=== PATIENT | female | born 1955 | race Caucasian/White ===

== ENCOUNTER 2016-10-26 06:44 | Inpatient (IN) | payer OTHER ==
[2016-10-26] MEDS ORDERED: morphine CARPU-JECT 4 MG/1 ML DISP.SYRIN IVPUSH ONE ×3 (07:14→12:48)
[2016-10-26] MEDS ORDERED: SODIUM CHLORIDE 500 ML IV STA (07:14)
[2016-10-26] MEDS ORDERED: ONDANSETRON 4 MG/2 ML VIAL IVPB ONE (07:16)
--- NOTE | 2016-10-26 07:28 | PDOC ---
History of Present Illness - General History Source: Patient, Family (Son) Exam Limitations: No Limitations - History of Present Illness Initial Comments: 10/26/16 07:43 The patient is a 61 year old female presenting with her son, with a significant past medical history of stage 4 colon CA with metastasize to the liver, lung and spine (L1) with last radiation being 4 days ago (also on chemotherapy), COPD and HTN, who presents to the emergency department with abdominal pain since last night. He notes that the patient usually has abdominal pain but never this severe. He also notes that the abdominal pain is usually onset when she has fluid build up in the abdomen. He reports that she has had loss of appetite for the last few days. The patient describes her abdominal pain as diffused throughout. On presentation the patient states that she has nausea, vomit and diarrhea. The patient denies shortness of breath, headache and dizziness. Denies fever, chills, and constipation. Denies dysuria, frequency, urgency and hematuria. Allergies: amitriptyline, IV contrast Past surgical history: Right sided chest port Social history: No alcohol, tobacco or drug use reported PMD - Dr. Harjit Modi (Dr. Yoder) Oncologist - Dr. Krueger ([facility]) Juan (Son) - [phone] <Lemuel Allen - Last Filed: 10/26/16 10:33> - General History Source: Patient, Family, [facility] Records Exam Limitations: No Limitations <Willian Dowd - Last Filed: 10/26/16 10:43> - General Chief Complaint: Pain, Acute Stated Complaint: ABD PAIN Time Seen by Provider: 10/26/16 07:05 Past History <Lemuel Allen - Last Filed: 10/26/16 10:33> - Past Medical History Cancer: (liver) Cardiac Disorders: Yes COPD: Yes GI Disorders: Yes HTN: Yes - Psycho/Social/Smoking Cessation Hx Suicidal Ideation: No Smoking History: Unknown if ever smoked <Willian Dowd - Last Filed: 10/26/16 10:43> - Past Medical History Allergies/Adverse Reactions: Allergies Allergy/AdvReac Type Severity Reaction Status Date / Time amitriptyline Allergy Verified 10/26/16 06:55 iv contrast Allergy Uncoded 10/26/16 06:55 Home Medications: Ambulatory Orders Acetaminophen [Tylenol] 650 mg PO QID PRN 10/26/16 Albuterol Sulfate Inhaler - [Ventolin Hfa Inhaler -] 1 - 2 inh PO Q4H 10/26/16 Docusate Sodium [Colace -] 100 mg PO BID 10/26/16 FENTANYL 75mcg PATCH [DURAGESIC 75mcg PATCH -] 1 each TD Q72H 10/26/16 Gabapentin [Neurontin -] 300 mg PO Q8H 10/26/16 Hydromorphone [Dilaudid -] 4 mg PO Q6H 10/26/16 Lorazepam 0.5 mg PO ASDIR 10/26/16 Pantoprazole Sodium [Protonix] 40 mg PO DAILY 10/26/16 Polyethylene Glycol 3350 [Miralax (For Daily Use) -] 17 gm PO DAILY 10/26/16 Sennosides [Senna] 8.6 mg PO HS 10/26/16 Tizanidine HCl [Zanaflex] 2 mg PO ASDIR 10/26/16 Review of Systems - Review of Systems Able to Perform ROS?: Yes Comments:: 10/26/16 07:43 GENERAL/CONSTITUTIONAL: (+)Loss of appetite. No fever or chills. No weakness. HEAD, EYES, EARS, NOSE AND THROAT: No change in vision. No ear pain or discharge. No sore throat. CARDIOVASCULAR: (+)Chest pain. No shortness of breath RESPIRATORY: No cough, wheezing, or hemoptysis. GASTROINTESTINAL: (+)Abdominal pain, nausea, vomiting and diarrhea. No constipation. GENITOURINARY: No dysuria, frequency, or change in urination. MUSCULOSKELETAL: No joint or muscle swelling or pain. No neck or back pain. SKIN: No rash NEUROLOGIC: No headache, vertigo, loss of consciousness, or change in strength/ sensation. ENDOCRINE: No increased thirst. No abnormal weight change HEMATOLOGIC/LYMPHATIC: No anemia, easy bleeding, or history of blood clots. ALLERGIC/IMMUNOLOGIC: No hives or skin allergy. <Lemuel Allen - Last Filed: 10/26/16 10:33> *Physical Exam - Vital Signs Last Vital Signs Temp Pulse Resp BP Pulse Ox 97.5 F L 100 H 18 143/73 99 10/26/16 07:01 10/26/16 07:01 10/26/16 07:01 10/26/16 07:01 10/26/16 07:01 - Physical Exam Comments: 10/26/16 07:44 GENERAL: (+) Cachectic. Awake, alert, and fully oriented. HEAD: No signs of trauma, normocephalic, atraumatic EYES: PERRLA, EOMI, sclera anicteric, conjunctiva clear ENT: Auricles normal inspection, hearing grossly normal, nares patent, oropharynx clear without exudates. Moist mucosa NECK: Normal ROM, supple, no lymphadenopathy, JVD, or masses LUNGS: No distress, speaks full sentences, clear to auscultation bilaterally HEART: Regular rate and rhythm, normal S1 and S2, no murmurs, rubs or gallops, peripheral pulses normal and equal bilaterally. ABDOMEN: (+) Diffused abdominal tenderness more prominent on the left lower quadrant. Soft, normoactive bowel sounds. No guarding, no rebound. No masses EXTREMITIES: Normal inspection, Normal range of motion, no edema. No clubbing or cyanosis. NEUROLOGICAL: (+) Right sided chest port. Cranial nerves II through XII grossly intact. Normal speech, no focal sensorimotor deficits SKIN: Warm, Dry, normal turgor, no rashes or lesions noted. <Lemuel Allen - Last Filed: 10/26/16 10:33> - Vital Signs Last Vital Signs Temp Pulse Resp BP Pulse Ox 97.5 F L 100 H 18 143/73 99 10/26/16 07:01 10/26/16 07:01 10/26/16 07:01 10/26/16 07:01 10/26/16 07:01 <Willian Dowd - Last Filed: 10/26/16 10:43> Heart Score/ECG Review #1 ECG reviewed & interpreted by me at: 07:40 10/26/16 08:08 NSR 105, RBBB, LAFB (bifascicular block), TWI V1-V4, III, avf, no std/kylah, QTC 512 msec <Willian Dowd - Last Filed: 10/26/16 10:43> ED Treatment Course - LABORATORY CBC & Chemistry Diagram: 10/26/16 07:15 10/26/16 07:15 - ADDITIONAL ORDERS Additional order review: Laboratory Results 10/26/16 07:35 VBG pH 7.42 POC VBG pCO2 34.2 L POC VBG pO2 41.8 Mixed VBG HCO3 21.7 - RADIOLOGY Radiograph Interpretation: 10/26/16 08:17 Chest X-Ray Reviewed by: Dr. Juan Villegas Impression: Bilateral pulmonary and pleural changes as described. Large heart. Sclerotic knob. CT abdomen and pelvis without contrast Reviewed by: Dr. Dexter Varela Impression: Concentric wall edema is seen involving the length of the colon as well as multiple small bowel loops which could be on the basis of acute enterocolitis or possibly vascular disease. Alternatively this appearance could be due to hypoproteinemia. The gallbladder wall appears to demonstrate diffuse nonspecific thickening. If there is clinical concern for possible acute cholecystitis correlation with a nuclear medicine HIDA scan may be performed. Multiple hepatic lesions are noted consistent with known metastatic neoplastic disease. Splenomegaly. Possible varices are noted within the gastrohepatic ligament and along the lower thoracic esophagus. Small to moderate amount of ascites. Moderate left pleural effusion. Multiple bilateral lower lung field pulmonary nodules. Status post L1 vertebroplasty. There is equivocal identification of epidural soft tissue material posterior to the L1 vertebral body. <Lemuel Allen - Last Filed: 10/26/16 10:33> - LABORATORY CBC & Chemistry Diagram: 10/26/16 07:15 10/26/16 07:15 - RADIOLOGY Radiology Studies Ordered: Category Date Time Status ABDOMEN & PELVIS CT W/O CONTR [CT] Stat CT Scan 10/26/16 07:14 Ordered CHEST X-RAY PORTABLE* [RAD] Stat Radiology 10/26/16 07:13 Ordered <Willian Dowd - Last Filed: 10/26/16 10:43> Medical Decision Making - Medical Decision Making 10/26/16 07:29 A portion of this note was written by my scribe. Vital Signs Temp Pulse Resp BP Pulse Ox 97.5 F L 100 H 18 143/73 99 10/26/16 07:01 10/26/16 07:01 10/26/16 07:01 10/26/16 07:01 10/26/16 07:01 61 year old female c/ pmh of colon ca stage IV c/ mets to liver, L1, lung, R sided chest port p/w worsening abdominal pain since yesterday evening. History provided by pt's son and pt. Pt's son visits pt several times a day at [facility]. Started to develop diffuse abdominal pain with several loose stools and nausea. No fevers, or vomiting. Did not recently have any IV chemotherapy but did 4 days have radiation therapy to the back. Pain had worsened than her typical pain and pt brought to the ED. Differential includes radiation colitis, colitis, diverticulitis, appendicitis, bowel obstruction, UTI. Will initiate adult sepsis protocol. Obtain CT abdomen and pelvis, UA, and reassess. 10/26/16 10:39 CBC, BMP 10/26/16 07:15 10/26/16 07:15 CMP Sodium 137 mmol/L (136-145) 10/26/16 07:15 Potassium 4.4 mmol/L (3.5-5.1) 10/26/16 07:15 Chloride 103 mmol/L (98-107) 10/26/16 07:15 Carbon Dioxide 22 mmol/L (21-32) 10/26/16 07:15 Anion Gap 12 (8-16) 10/26/16 07:15 BUN 16 mg/dL (7-18) 10/26/16 07:15 Creatinine 0.8 mg/dL (0.55-1.02) 10/26/16 07:15 Creat Clearance w eGFR > 60 (>60) 10/26/16 07:15 Random Glucose 96 mg/dL (74-106) 10/26/16 07:15 Lactic Acid 2.987 mmol/L (0.4-2.0) H* 10/26/16 07:15 Calcium 7.7 mg/dL (8.5-10.1) L 10/26/16 07:15 Total Bilirubin 4.0 mg/dL (0.2-1.0) H 10/26/16 07:15 AST 105 U/L (15-37) H 10/26/16 07:15 ALT 20 U/L (12-78) 10/26/16 07:15 Alkaline Phosphatase 543 U/L (45-117) H 10/26/16 07:15 Creatine Kinase 231 IU/L (26-192) H 10/26/16 07:15 Troponin I 0.04 ng/ml (0.00-0.05) 10/26/16 07:15 Total Protein 8.1 g/dl (6.4-8.2) 10/26/16 07:15 Albumin 1.7 g/dl (3.4-5.0) L 10/26/16 07:15 Urine Test Results Urine Color Kat[place] 10/26/16 09:24 Urine Appearance Clear 10/26/16 09:24 Urine pH 5.0 (5.0-8.0) 10/26/16 09:24 Ur Specific [place] 1.021 (1.001-1.035) 10/26/16 09:24 Urine Protein 1+ (NEGATIVE) H 10/26/16 09:24 Urine Glucose (UA) Negative (NEGATIVE) 10/26/16 09:24 Urine Ketones Trace (NEGATIVE) H 10/26/16 09:24 Urine Blood Negative (NEGATIVE) 10/26/16 09:24 Urine Nitrite Negative (NEGATIVE) 10/26/16 09:24 Urine Bilirubin 2.0 (NEGATIVE) 10/26/16 09:24 Ur Leukocyte Esterase Trace (NEGATIVE) H 10/26/16 09:24 Urine RBC 1 /hpf (0-3) 10/26/16 09:24 Urine WBC 3 /hpf (3-5) 10/26/16 09:24 Ur Epithelial Cells Rare /hpf (FEW) 10/26/16 09:24 Urine Mucus Moderate 10/26/16 09:24 CT scan demonstrates diffuse colitis. This is possibly radiation colitis given the radiation. Given the elevated WBC and CT findings, vanc and zosyn was ordered. Case discussed with Dr. Yoder who accepts the patient for admission. He requests Dr. Forbes, Dr. Kim, and Dr. Benitez for consultation. <Willian Dowd - Last Filed: 10/26/16 10:43> *DC/Admit/Observation/Transfer - Attestations Scribe Attestion: 10/26/16 07:44 Documentation prepared by Lemuel Allen, acting as medical research scientist for Willian Dowd MD <Lemuel Allen - Last Filed: 10/26/16 10:33> - Discharge Dispostion Admit: Yes <Willian Dowd - Last Filed: 10/26/16 10:43> Diagnosis at time of Disposition: Colitis Malignant neoplasm of colon Qualifiers: Colon location: unspecified part of colon Qualified Code(s): C18.9 - Malignant neoplasm of colon, unspecified - Discharge Dispostion Condition at time of disposition: Stable - Referrals Referrals: Harjit Modi [Primary Care Provider] -
[2016-10-26 07:37] LABS: VENOUS PH 7.42 (7.32-7.42)
[2016-10-26] MEDS ORDERED: ONDANSETRON 4 MG/2 ML VIAL ONE (07:37)
[2016-10-26] MEDS ORDERED: morphine CARPU-JECT 4 MG/1 ML DISP.SYRIN ONE ×3 (07:37→14:03)
[2016-10-26 07:38] LABS: VENOUS BLOOD GAS HCO3 21.7 meq/L (19-25)
[2016-10-26 07:40] LABS: MCH 29.2 pg (25.7-33.7); MCHC 31.9 g/dl (32.0-36.0); MEAN CELL VOLUME 91.7 fl (80-96); MEAN PLT VOLUME 7.8 fl (7.5-11.1); PLATELET COUNT 121 K/MM3 (134-434); RDW 17.4 % (11.6-15.6); WHITE BLOOD COUNT 28.1 K/mm3 (4.0-10.0)
[2016-10-26 08:05] LABS: INR 1.63 (0.82-1.09); PROTHROMBIN TIME (PATIENT) 18.1 SEC (9.98-11.88)
[2016-10-26 08:08] LABS: ACTIVATED PTT 32.9 SECONDS (26.9-34.4)
[2016-10-26 08:13] LABS: ALBUMIN 1.7 g/dl (3.4-5.0); ANION GAP 12 (8-16); CALCIUM 7.7 mg/dL (8.5-10.1); CO2 22 mmol/L (21-32); CREATININE 0.8 mg/dL (0.55-1.02); GLUCOSE,RANDOM 96 mg/dL (74-106); SGPT/ALT 20 U/L (12-78); TOT PROT 8.1 g/dl (6.4-8.2)
[2016-10-26 08:15] LABS: ALK PHOS 543 U/L (45-117); TROPONIN I 0.04 ng/ml (0.00-0.05)
[2016-10-26] MEDS ORDERED: PIPERACILLIN/TAZOB 3.375 GM/50 ML PRE-DOCKED IVPB ONE (08:19)
[2016-10-26] MEDS ORDERED: VANCOMYCIN 1,000 MG in DEXTROSE 5%-WATER - 250 ML IVPB ONE (08:19)
[2016-10-26 08:29] LABS: SGOT/AST 105 U/L (15-37)
[2016-10-26] MEDS ORDERED: PIPERACILLIN/TAZOB 3.375 GM 50 ML IVPB ONE (08:35)
[2016-10-26] MEDS ORDERED: VANCOMYCIN 1 GRAM (PRE-DOCKED) 250 ML IVPB ONE (08:35)
[2016-10-26 09:35] LABS: URINE APPEARANCE CLEAR; URINE BLOOD NEGATIVE (NEGATIVE); URINE COLOR AMBER; URINE GLUCOSE (UA) NEGATIVE (NEGATIVE); URINE KETONE TRACE (NEGATIVE); URINE NITRITE NEGATIVE (NEGATIVE); URINE UROBILINOGEN 4.0 E.U/dl E.U./dl (0.2-1.0)
[2016-10-26 09:36] LABS: URINE LEUK ESTERASE TRACE (NEGATIVE); URINE PROTEIN 1+ (NEGATIVE)
[2016-10-26 09:54] LABS: GRANULAR CASTS 49 /lpf; URINE MUCUS MODERATE; URINE RBC 1 /hpf (0-3); URINE WBC 3 /hpf (3-5)
[2016-10-26 10:01] LABS: PLATELET ESTIMATE DECREASED (NORMAL)
--- NOTE | 2016-10-26 10:14 | EKG ---
Test Reason : Blood Pressure : / mmHG Vent. Rate : 105 BPM Atrial Rate : 105 BPM P-R Int : 158 ms QRS Dur : 132 ms QT Int : 388 ms P-R-T Axes : 036 -81 001 degrees QTc Int : 512 ms SINUS TACHYCARDIA RIGHT BUNDLE BRANCH BLOCK LEFT ANTERIOR FASCICULAR BLOCK BIFASCICULAR BLOCK ABNORMAL ECG NO PREVIOUS ECGS AVAILABLE Confirmed by JERMAINE FERRIS MD ([id number]) on 10/26/2016 10:14:26 AM Referred By: Confirmed By:JERMAINE FERRIS MD
[2016-10-26] MEDS ORDERED: SODIUM CHLORIDE 250 ML IV STA (13:55)
--- NOTE | 2016-10-26 14:01 | PN ---
Progress Note (short form) - Note Progress Note: ID consult dictated imp/reccd History from son 61 year old with metastatic colon cancer off chemo for last one month recently returned from cruise with weakness and back pain hospitalized at [facility] (oncologist Dr Krueger) where she was found to have new vertebral and lung mets she went to [place] on 10/21 and started radiation last week- she got 3 cycles and it was stopped family does not know why today with increasing pain back radiating to abdomen son reports diarrhea at the [place] patient denies fever/chills +vomiting per patient she is alert knows her name and some facts but is a poor historian labs notable for elevated wbc and lactic acid ct scan notable for diffuse colon wall thickening, bilateral lower lung nodules , liver lesions left pleural effusion IVC filer L1 vertebroplasty possible colitis- ?radiation,?cdiff cultures blood stool culture, wbc, cdiff norovirus zosyn and flagyl received vancomycin in ed as well metastatic colon cancer
[2016-10-26] MEDS: METRONIDAZOLE 500 MG PREMIXED 100 ML IVPB SCH ×2 (14:07→17:25)
[2016-10-26 17:33] VITALS: BMI 20.8
--- NOTE | 2016-10-26 17:39 | HP ---
Admitting History and Physical - Primary Care Physician PCP: Adam Yoder - Admission Chief Complaint: ASCITES/ABD PAIN History of Present Illness: The patient is a 61 year old female presenting with her son, with a significant past medical history of stage 4 colon CA with metastasize to the liver, lung and spine (L1) with last radiation being 4 days ago (also on chemotherapy), COPD and HTN, who presents to the emergency department with abdominal pain since last night. He notes that the patient usually has abdominal pain but never this severe. He also notes that the abdominal pain is usually onset when she has fluid build up in the abdomen. He reports that she has had loss of appetite for the last few days. The patient describes her abdominal pain as diffused throughout. On presentation the patient states that she has nausea, vomit and diarrhea. The patient denies shortness of breath, headache and dizziness. Denies fever, chills, and constipation. Denies dysuria, frequency, urgency and hematuria. History Source: Patient, Family Member, Medical Record - Past Medical History Heme/Onc: Yes: Cancer - Smoking History Smoking history: Former smoker Have you smoked in the past 12 months: No - Alcohol/Substance Use Hx Alcohol Use: No Home Medications - Allergies Allergies/Adverse Reactions: Allergies Allergy/AdvReac Type Severity Reaction Status Date / Time amitriptyline Allergy Verified 10/26/16 06:55 iv contrast Allergy Uncoded 10/26/16 06:55 - Home Medications Home Medications: Ambulatory Orders Acetaminophen [Tylenol] 650 mg PO QID PRN 10/26/16 Albuterol Sulfate Inhaler - [Ventolin Hfa Inhaler -] 1 - 2 inh PO Q4H 10/26/16 Docusate Sodium [Colace -] 100 mg PO BID 10/26/16 FENTANYL 75mcg PATCH [DURAGESIC 75mcg PATCH -] 1 each TD Q72H 10/26/16 Gabapentin [Neurontin -] 300 mg PO Q8H 10/26/16 Hydromorphone [Dilaudid -] 4 mg PO Q6H 10/26/16 Lorazepam 0.5 mg PO ASDIR 10/26/16 Pantoprazole Sodium [Protonix] 40 mg PO DAILY 10/26/16 Polyethylene Glycol 3350 [Miralax (For Daily Use) -] 17 gm PO DAILY 10/26/16 Sennosides [Senna] 8.6 mg PO HS 10/26/16 Tizanidine HCl [Zanaflex] 2 mg PO ASDIR 10/26/16 Review of Systems - Review of Systems Constitutional: reports: Loss of Appetite, Weakness Eyes: reports: No Symptoms HENT: reports: No Symptoms Neck: reports: No Symptoms Cardiovascular: reports: No Symptoms Respiratory: reports: No Symptoms Gastrointestinal: reports: Abdominal Pain, Other Genitourinary: reports: No Symptoms Integumentary: reports: No Symptoms Neurological: reports: No Symptoms Endocrine: reports: No Symptoms Hematology/Lymphatic: reports: No Symptoms Psychiatric: reports: No Symptoms Physical Examination Vital Signs: Vital Signs Temperature 98 F 10/26/16 17:27 Pulse Rate 79 10/26/16 17:27 Respiratory Rate 18 10/26/16 17:27 Blood Pressure 123/75 10/26/16 17:27 O2 Sat by Pulse Oximetry (%) 97 10/26/16 15:59 Findings/Remarks: ASLEEP, SON BEDSIDE Constitutional: Yes: Mild Distress Eyes: Yes: WNL HENT: Yes: WNL Neck: Yes: WNL Cardiovascular: Yes: WNL Respiratory: Yes: WNL Gastrointestinal: Yes: Tenderness Renal/: Yes: WNL Musculoskeletal: Yes: Muscle Weakness Extremities: Yes: WNL Edema: No Peripheral Pulses WNL: Yes Integumentary: Yes: WNL Wound/Incision: Yes: Clean/Dry Neurological: Yes: Other ...Motor Strength: LLE, RLE Psychiatric: Yes: Other Imaging - Results Cat Scan: Report Reviewed Problem List - Problems (1) Colitis Code(s): K52.9 - NONINFECTIVE GASTROENTERITIS AND COLITIS, UNSPECIFIED (2) Colon cancer Code(s): C18.9 - MALIGNANT NEOPLASM OF COLON, UNSPECIFIED Qualifiers: Colon location: unspecified part of colon Qualified Code(s): C18.9 - Malignant neoplasm of colon, unspecified Assessment/Plan IV ABX PER ID ONCOLOGY AND GI EVAL PAIN CONTROL CHECK CX ADVANCE DIET TOLERATED
[2016-10-26] MEDS ORDERED: HYDROmorphone HCL CARPU-JECT 1 MG/1 ML DISP.SYRIN IVPB PRN (17:40)
[2016-10-26] MEDS ORDERED: ACETAMINOPHEN 650 MG SUPP.RECT PR PRN (17:40)
[2016-10-26] MEDS ORDERED: ONDANSETRON 4 MG/2 ML VIAL IVPB PRN (17:40)
[2016-10-26] MEDS ORDERED: FENTANYL PATCH WASTE MC PRN (17:40)
[2016-10-26] MEDS ORDERED: DEXTROSE 5%-NORMAL SALINE 1,000 ML IV SCH (17:45)
--- NOTE | 2016-10-26 18:09 | CONS ---
DATE OF CONSULTATION: DATE OF DICTATION: 10/26/2016 INFECTIOUS DISEASE CONSULTATION REQUESTING PHYSICIAN: Adam Yoder M.D. CONSULTING PHYSICIAN: Dave Pérez M.D. HISTORY OF PRESENT ILLNESS: This is a 61-year-old woman who was sent over from [facility] with complaints of increasing back and abdominal pain. Most of the history was obtained from her son, who I spoke to via phone. She apparently was diagnosed about a year ago with colon cancer. She was on chemotherapy until about a month ago. She was cleared to go on a cruise, which she returned from about 3 weeks ago. She was complaining of generalized weakness and low back pain after her return. After 2 days at home, she was admitted to [facility], where her oncologist Dr. Krueger practices. She was hospitalized there and was found to have new lung and spine metastases. She was discharged to the detention on October 21 and scheduled to start radiation therapy, which the son reports she was to receive last week and this week. She received 3 doses of radiation last week and it was stopped. They are not clear as to why. She denies any fevers or chills. She has a poor appetite. Son reports she has diarrhea in the detention. She reports she had vomiting as well. She notes nausea. She has no fevers or chills. Her travel was on a cruise which was about a month ago. ALLERGIES: She is allergic to AMITRIPTYLINE and IV CONTRAST. MEDICATION: At the detention include senna, Miralax, Protonix, Neurontin, Colace, Ventolin, Zanaflex, Dilaudid, lorazepam, Duragesic patch, Tylenol. FAMILY HISTORY: Noncontributory. SOCIAL HISTORY: Her daughter lives with her, but she is currently staying at the detention since her most recent admission. PAST MEDICAL HISTORY: Notable for history of colon cancer with metastases to the liver, lung, and spine. She never had any surgery. She is status post chemotherapy and recent radiation therapy to her back last week. She has a history as well of COPD and hypertension. She has never had any surgery. REVIEW OF SYSTEMS: She notes poor appetite. She is thirsty and wants to have something to drink. She denies any fever and chills, and she states that she had some vomiting this morning. PHYSICAL EXAMINATION: General: She is very weak appearing by alert. She is a very poor historian. She is oriented to person and place, but she will not give any detailed history. Vital signs: Temperature 98, pulse 87, blood pressure 143/75, respiratory rate 16, she is saturating 95%. HEENT: Normocephalic. Eyes are mildly icteric. She has dry oral mucosa. She has no thrush. Neck: Supple. Lungs: Clear have diminished breath sounds at the left base. Heart: Regular rate and rhythm. Abdomen: Firm, diffusely tender to palpation. She has good bowel sounds. She has low back pain to palpation of her lumbar spine. She has no thoracic or cervical pain. Extremities: Without edema. Skin: She has no rash. LABORATORY: White count is 28,000, hemoglobin 9.5, platelets 121, INR 1.6. Her BUN and creatinine are 16 and 0.8, lactic acid was 2.9 and repeated to 2.1. Total bilirubin is 4 with an AST of 105 and alkaline phosphatase of 543. Urinalysis has 3 white cells. Chest x-ray was done which is notable for cardiomegaly on the left and bilateral effusions and atelectasis left greater than right. CAT scan of the abdomen and pelvis reveals a left pleural effusion, bilateral lower lung nodules, liver lesions, diffuse colonic wall thickening, IVC filter, and an L1 vertebroplasty. IMPRESSION: 1. In summary, this is a 61-year-old woman with metastatic colon cancer with possible colitis, possible radiation, possible Clostridium difficile. We cultured her blood. Will send a stool culture, white cells. Will send norovirus as well, given her recent cruise. Will treat her with Zosyn and Flagyl. She received vancomycin in the emergency room as well. 2. History of metastatic colon cancer. Further recommendations to follow based on her clinical course. DAVE PÉREZ M.D. [id number] MTDD
[2016-10-26] MEDS: PIPERACILLIN/TAZOB 3.375 GM/50 ML PRE-DOCKED IVPB SCH (18:26)
[2016-10-26] MEDS: fentaNYL 75mcg/hr PATCH.TD72 TD SCH (18:28)
--- NOTE | 2016-10-26 20:23 | CON.GI ---
Consult Consult Specialty:: gastroenetorology Referred by:: Dr Yoder/ Harjit Modi - History of Present Illness History of Present Illness: 61 y/o female with PMH of Colon cancer with metastases to the spine, s/p radiation to the spine was admitted with severe abdominal pain. She had soft bowel movements yesterday with abdominal pain but this persisted up to the time of admission. This evening the abdominal pain persisted despite pain medication - Past Medical History Pulmonary: Yes: COPD - Alcohol/Substance Use Hx Alcohol Use: No - Smoking History Smoking history: Former smoker Have you smoked in the past 12 months: No Home Medications - Allergies Allergies/Adverse Reactions: Allergies Allergy/AdvReac Type Severity Reaction Status Date / Time amitriptyline Allergy Verified 10/26/16 06:55 iv contrast Allergy Uncoded 10/26/16 06:55 - Home Medications Home Medications: Ambulatory Orders Acetaminophen [Tylenol] 650 mg PO QID PRN 10/26/16 Albuterol Sulfate Inhaler - [Ventolin Hfa Inhaler -] 1 - 2 inh PO Q4H 10/26/16 Docusate Sodium [Colace -] 100 mg PO BID 10/26/16 FENTANYL 75mcg PATCH [DURAGESIC 75mcg PATCH -] 1 each TD Q72H 10/26/16 Gabapentin [Neurontin -] 300 mg PO Q8H 10/26/16 Hydromorphone [Dilaudid -] 4 mg PO Q6H 10/26/16 Lorazepam 0.5 mg PO ASDIR 10/26/16 Pantoprazole Sodium [Protonix] 40 mg PO DAILY 10/26/16 Polyethylene Glycol 3350 [Miralax (For Daily Use) -] 17 gm PO DAILY 10/26/16 Sennosides [Senna] 8.6 mg PO HS 10/26/16 Tizanidine HCl [Zanaflex] 2 mg PO ASDIR 10/26/16 Family Disease History - Family Disease History Family History: Denies Review of Systems - Review of Systems Constitutional: denies: Fever HENT: denies: Difficult Swallowing Respiratory: denies: SOB Gastrointestinal: reports: Abdominal Pain. denies: Bloating, Constipation, Diarrhea, Nausea Physical Exam-GI Vital Signs: Vital Signs Temperature 98 F 10/26/16 17:27 Pulse Rate 79 10/26/16 17:27 Respiratory Rate 18 10/26/16 17:40 Blood Pressure 123/75 10/26/16 17:27 O2 Sat by Pulse Oximetry (%) 97 10/26/16 17:40 Constitutional: Yes: Well Nourished Eyes: Yes: Conjunctiva Clear HENT: Yes: Atraumatic, Tonsillar Exudate Cardiovascular: Yes: Regular Rate and Rhythm Respiratory: Yes: CTA Bilaterally ...Palpate: Yes: Soft, Tenderness (--diffuse), Tenderness, Rebound (--diffuse) Labs: INR, PTT INR 1.63 (0.82-1.09) H 10/26/16 07:15 CBCD WBC 28.1 K/mm3 (4.0-10.0) H 10/26/16 07:15 RBC 3.25 M/mm3 (3.60-5.2) L 10/26/16 07:15 Hgb 9.5 GM/dL (10.7-15.3) L 10/26/16 07:15 Hct 29.8 % (32.4-45.2) L 10/26/16 07:15 MCV 91.7 fl (80-96) 10/26/16 07:15 MCHC 31.9 g/dl (32.0-36.0) L 10/26/16 07:15 RDW 17.4 % (11.6-15.6) H 10/26/16 07:15 Plt Count 121 K/MM3 (134-434) L 10/26/16 07:15 MPV 7.8 fl (7.5-11.1) 10/26/16 07:15 CMP Sodium 137 mmol/L (136-145) 10/26/16 07:15 Potassium 4.4 mmol/L (3.5-5.1) 10/26/16 07:15 Chloride 103 mmol/L (98-107) 10/26/16 07:15 Carbon Dioxide 22 mmol/L (21-32) 10/26/16 07:15 Anion Gap 12 (8-16) 10/26/16 07:15 BUN 16 mg/dL (7-18) 10/26/16 07:15 Creatinine 0.8 mg/dL (0.55-1.02) 10/26/16 07:15 Creat Clearance w eGFR > 60 (>60) 10/26/16 07:15 Calcium 7.7 mg/dL (8.5-10.1) L 10/26/16 07:15 Total Bilirubin 4.0 mg/dL (0.2-1.0) H 10/26/16 07:15 AST 105 U/L (15-37) H 10/26/16 07:15 ALT 20 U/L (12-78) 10/26/16 07:15 Alkaline Phosphatase 543 U/L (45-117) H 10/26/16 07:15 Total Protein 8.1 g/dl (6.4-8.2) 10/26/16 07:15 Albumin 1.7 g/dl (3.4-5.0) L 10/26/16 07:15 Imaging - Results Cat Scan: Report Reviewed, Image Reviewed (thickenned small bowel loops) Problem List - Problems (1) Acute mesenteric ischemia Assessment/Plan: secondary to hypercoaguable state R> prognosis poor because of metastatic colon cancer IV hydration continue antibiotics discussed with Juan Devine her son and Jessika her niece. Her prognosis is poor Code(s): K55.059 - ACUTE ISCHEMIA OF INTESTINE, PART AND EXTENT UNSPECIFIED
[2016-10-26] MEDS: DEXTROSE 5%-NORMAL SALINE 1,000 ML IV SCH (21:44)
--- NOTE | 2016-10-26 22:14 | CONSULT ---
Consult - text type - Consultation Consultation Note: The patient is a 61 year old female presenting with her son, with a significant past medical history of stage 4 colon CA with metastases to the liver, lung and spine (L1) with last radiation being 4 days ago , COPD and HTN, who presents to the emergency department with abdominal pain since last night.Also had diarrhea. Abdominal pain is diffuse The patient denies shortness of breath, headache and dizziness. Denies fever, chills, and constipation. Denies dysuria, frequency, urgency and hematuria. - Past Medical History HTN COPD metastatic colon cancer - Smoking History Smoking history: Former smoker Home Medications - Allergies Allergies/Adverse Reactions: Allergies Allergy/AdvReac Type Severity Reaction Status Date / Time amitriptyline Allergy Verified 10/26/16 06:55 iv contrast Allergy Uncoded 10/26/16 06:55 - Home Medications Home Medications: Ambulatory Orders Acetaminophen [Tylenol] 650 mg PO QID PRN 10/26/16 Albuterol Sulfate Inhaler - [Ventolin Hfa Inhaler -] 1 - 2 inh PO Q4H 10/26/16 Docusate Sodium [Colace -] 100 mg PO BID 10/26/16 FENTANYL 75mcg PATCH [DURAGESIC 75mcg PATCH -] 1 each TD Q72H 10/26/16 Gabapentin [Neurontin -] 300 mg PO Q8H 10/26/16 Hydromorphone [Dilaudid -] 4 mg PO Q6H 10/26/16 Lorazepam 0.5 mg PO ASDIR 10/26/16 Pantoprazole Sodium [Protonix] 40 mg PO DAILY 10/26/16 Polyethylene Glycol 3350 [Miralax (For Daily Use) -] 17 gm PO DAILY 10/26/16 Sennosides [Senna] 8.6 mg PO HS 10/26/16 Tizanidine HCl [Zanaflex] 2 mg PO ASDIR 10/26/16 Current Medications Generic Name Dose Route Start Last Admin Trade Name Freq PRN Reason Stop Dose Admin Acetaminophen 650 mg 10/26/16 17:40 Tylenol Suppository - [place] Q6H PRN FEVER OR PAIN Fentanyl 1 patch 10/26/16 17:45 10/26/16 18:28 Duragesic 75mcg Patch - TD 1 patch Q72H [facility]O Administration Gabapentin 300 mg 10/26/16 22:00 10/26/16 22:17 Neurontin - PO 300 mg BID LAMBERTO Administration Heparin Sodium (Porcine) 5,000 unit 10/26/16 22:00 10/26/16 22:17 Heparin - SQ 5,000 unit BID LAMBERTO Administration Hydromorphone HCl 2 mg 10/26/16 22:53 Dilaudid Injection - IVPB Q4H PRN Metronidazole 100 mls @ 100 mls/hr 10/26/16 14:00 10/26/16 17:25 Flagyl 500mg Premixed Ivpb - IVPB 100 mls/hr Q8H-IV LAMBERTO Administration Dextrose/Sodium Chloride 1,000 mls @ 175 mls/hr 10/26/16 20:13 10/26/16 21:44 D5-Ns - IV 175 mls/hr ASDIR LAMBERTO Administration Miscellaneous 1 each 10/26/16 17:40 10/26/16 18:41 Duragesic Patch Waste MC 1 each PRN PRN Administration PAIN Ondansetron HCl 4 mg 10/26/16 17:40 Zofran Injection IVPB Q6H PRN NAUSEA Pantoprazole Sodium 40 mg 10/27/16 10:00 Protonix 40mg Ivpb (Pre-Docked) IVPB DAILY [facility] Piperacillin Sod/Tazobactam Sod 3.375 gm 10/26/16 16:00 10/26/16 18:26 Zosyn 3.375gm Ivpb (Pre-Docked) IVPB 3.375 gm Q8H-IV [facility]O Administration Protocol Vancomycin HCl 1,000 mg 10/26/16 22:30 Vancomycin (Pre-Docked) IVPB BID [facility] Protocol Physical Examination Vital Signs: Last Vital Signs Temp Pulse Resp BP Pulse Ox 98 F 79 18 123/75 97 10/26/16 17:27 10/26/16 17:27 10/26/16 21:00 10/26/16 17:27 10/26/16 21:00 Cor: RSR, No murmurs, No gallops Lungs: Clear to P&A Abd: Soft, diffuse tenderness, no guarding/rigidity Ext:No significant edema Skin: No rashes, Integument intact A/P 61 y/opatient with metastatic colon cancer with lung/liver mets ,L1 ? epidural disease, s/p Rt, now with abdomnal pain/colitis ruling out infectious vs RT vs ischemis On IV hydration/NPO/Zosyn /flagyl discussed overall poor prognosis with patients son at the bed side
[2016-10-26] MEDS: GABAPENTIN 300 MG CAPSULE (FP) PO SCH (22:17)
[2016-10-26] MEDS: HEPARIN NA (PORCINE) 5,000 UNITS/ML 1ML VIAL SQ SCH (22:17)
[2016-10-26] MEDS ORDERED: VANCOMYCIN 1 GRAM (PRE-DOCKED) 1,000 MG/250 ML BAG IVPB SCH (22:30)
[2016-10-26] MEDS: HYDROmorphone HCL CARPU-JECT 2 MG/1 ML DISP.SYRIN IVPB PRN (22:30)
[2016-10-26] MEDS ORDERED: HYDROmorphone HCL CARPU-JECT 2 MG/1 ML DISP.SYRIN ONE (22:38)
[2016-10-27] MEDS: GABAPENTIN 300 MG CAPSULE (FP) PO SCH ×2 (01:56→09:30)
[2016-10-27] MEDS: METRONIDAZOLE 500 MG PREMIXED 100 ML IVPB SCH ×3 (02:31→17:34)
[2016-10-27] MEDS: PIPERACILLIN/TAZOB 3.375 GM/50 ML PRE-DOCKED IVPB SCH ×3 (03:23→17:00)
[2016-10-27] MEDS: HYDROmorphone HCL CARPU-JECT 2 MG/1 ML DISP.SYRIN IVPB PRN ×3 (05:17→14:09)
[2016-10-27] MEDS: ALBUTEROL SO4 6.7 GM HFA INHALER IH PRN (06:57)
[2016-10-27 07:50] LABS: MCH 29.4 pg (25.7-33.7); MCHC 31.8 g/dl (32.0-36.0); MEAN CELL VOLUME 92.6 fl (80-96); MEAN PLT VOLUME 7.4 fl (7.5-11.1); PLATELET COUNT 90 K/MM3 (134-434); RDW 17.8 % (11.6-15.6); WHITE BLOOD COUNT 12.1 K/mm3 (4.0-10.0)
[2016-10-27] MEDS ORDERED: PT OWN MED DRAWER 7, Y5N ONE ×2 (08:05→19:47)
[2016-10-27 08:14] LABS: ALBUMIN 1.5 g/dl (3.4-5.0)
[2016-10-27 08:17] LABS: BILIRUBIN,TOTAL 2.7 mg/dL (0.2-1.0); CALCIUM 7.9 mg/dL (8.5-10.1); COCKROFT - GAULT 40.2645; CREATININE 1.5 mg/dL (0.55-1.02)
[2016-10-27] MEDS: PANTOPRAZOLE SODIUM 40 MG/100 ML PRE-DOCKED IVPB SCH (09:15)
[2016-10-27] MEDS: HEPARIN NA (PORCINE) 5,000 UNITS/ML 1ML VIAL SQ SCH ×2 (09:31→22:58)
[2016-10-27] MEDS ORDERED: PANTOPRAZOLE SODIUM 40 MG in SODIUM CHLORIDE 100 ML IVPB SCH (10:00)
[2016-10-27] MEDS ORDERED: PANTOPRAZOLE SODIUM 40 MG/100 ML PRE-DOCKED IVPB SCH (10:00)
[2016-10-27] MEDS: DEXTROSE 5%-NORMAL SALINE 1,000 ML IV SCH ×2 (10:06→22:57)
[2016-10-27] MEDS ORDERED: VANCOMYCIN 1 GRAM (PRE-DOCKED) 1,000 MG/250 ML BAG IVPB SCH (12:00)
--- NOTE | 2016-10-27 16:38 | PN ---
Progress Note (short form) - Note Progress Note: awake and alert back pain still present abdominal pain improved no fevers no diarrhea Vital Signs Period Temp Pulse Resp BP Sys/Erickson Pulse Ox Last 24 Hr 97.4 F-98.1 F 79-110 16-20 107-144/59-77 97-97 cor-rrr lungs decreased bs at bases abd soft, +bs +tender to palpation ext no edema CBC, BMP 10/27/16 06:15 10/27/16 06:15 Microbiology 10/26/16 09:24 Urine - Urine Clean Catch Urine Culture - Preliminary Strep Agalactiae Group B 10/26/16 07:15 Blood - Peripheral Venous Blood Culture - Preliminary Pending Organism 10/26/16 07:15 Blood - Peripheral Venous Blood Culture - Preliminary Pending Organism a/p sepsis-gram positive colitis by ct scan metastatic colon cancer continue vancomycin/zosyn/flagyl clinically improved repeat blood cultures echo
--- NOTE | 2016-10-27 16:52 | PN ---
Progress Note (short form) - Note Progress Note: Patient seen and examined Alert , ROS- no headaches, diplopia epistaxis, dysphagia, nausea, emesis, diarrhea, constipation, some reflux, ;some lower back pains, no dysuria, , some abdominal pains and discomfort, neuropathy Le's Current Medications Generic Name Dose Route Start Last Admin Trade Name Freq PRN Reason Stop Dose Admin Acetaminophen 650 mg 10/26/16 17:40 Tylenol Suppository - [place] Q6H PRN FEVER OR PAIN Albuterol Sulfate 1 puff 10/27/16 05:29 10/27/16 06:57 Ventolin Hfa Inhaler - IH 1 puff Q4H PRN Administration SHORT OF BREATH/WHEEZING Fentanyl 1 patch 10/26/16 17:45 10/26/16 18:28 Duragesic 75mcg Patch - TD 1 patch Q72H [facility]O Administration Gabapentin 300 mg 10/26/16 22:00 10/27/16 09:30 Neurontin - PO 300 mg BID LAMBERTO Administration Heparin Sodium (Porcine) 5,000 unit 10/26/16 22:00 10/27/16 09:31 Heparin - SQ 5,000 unit BID LAMBERTO Administration Hydromorphone HCl 2 mg 10/26/16 22:53 10/27/16 14:09 Dilaudid Injection - IVPB 2 mg Q4H PRN Administration Metronidazole 100 mls @ 100 mls/hr 10/26/16 14:00 10/27/16 10:28 Flagyl 500mg Premixed Ivpb - IVPB 100 mls/hr Q8H-IV L[facility]BERTO Administration Dextrose/Sodium Chloride 1,000 mls @ 175 mls/hr 10/26/16 20:13 10/27/16 10:06 D5-Ns - IV 175 mls/hr ASDIR LAMBERTO Administration Miscellaneous 1 each 10/26/16 17:40 10/26/16 18:41 Duragesic Patch Waste MC 1 each PRN PRN Administration PAIN Ondansetron HCl 4 mg 10/26/16 17:40 Zofran Injection IVPB Q6H PRN NAUSEA Pantoprazole Sodium 40 mg 10/27/16 09:30 10/27/16 09:15 Protonix 40mg Ivpb (Pre-Docked) IVPB 40 mg DAILY@0800 L[facility]O Administration Piperacillin Sod/Tazobactam Sod 3.375 gm 10/26/16 16:00 10/27/16 09:50 Zosyn 3.375gm Ivpb (Pre-Docked) IVPB 3.375 gm Q8H-IV [facility]O Administration Protocol Vancomycin HCl 1,000 mg 10/28/16 10:00 Vancomycin (Pre-Docked) IVPB DAILY [facility] Protocol Last Vital Signs Temp Pulse Resp BP Pulse Ox 97.4 F L 79 18 107/59 97 10/27/16 14:00 10/27/16 14:00 10/27/16 14:00 10/27/16 14:00 10/27/16 09:00 HEENT: JANICE, EOM Intact Oropharynx: No thrush, No mucositis,edentulous Neck: Supple Nodes: Without adenopathy Breasts: Without masses Cor: RSR, No murmurs, No gallops Lungs: Clear to P&A Abd: tenderness, georgi. RUQ rebound, bowel sounds present Ext:No significant edema Skin: No rashes, Integument intact CBC, BMP 10/27/16 06:15 10/27/16 06:15 Abnormal Lab Results 10/27/16 10/27/16 06:15 06:15 WBC 12.1 H D RBC 2.85 L Hgb 8.4 L D Hct 26.4 L MCHC 31.8 L RDW 17.8 H Plt Count 90 L D MPV 7.4 L BUN 20 H D Creatinine 1.5 H D Calcium 7.9 L Total Bilirubin 2.7 H D AST 78 H D Alkaline Phosphatase 420 H D Albumin 1.5 L Impression: Sepsis with positive blood cultures -=strep species, urine culture positive ?? 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 This was discontinued because of neuropathy. This was followed by RT to spine. Last chemoRx about 6 weeks ago. Anemia and thrombocytopenia have been present secondary to prior therapy and portal hypertension. Plan: Antibiotics per ID. GI monitoring for colitis Blood bank support prn Spoke with Dr. NEWBY treating oncologist at [facility] for background.
--- NOTE | 2016-10-27 18:50 | PN ---
GI Progress Note Subjective: abdominal pain resolved, Lfts downward trend, WBC down to 12,000 - Objective Vital Signs: Vital Signs Temperature 97.7 F 10/27/16 16:30 Pulse Rate 76 10/27/16 16:30 Respiratory Rate 20 10/27/16 16:30 Blood Pressure 99/57 10/27/16 16:30 O2 Sat by Pulse Oximetry (%) 97 10/27/16 09:00 Constitutional: Well Nourished Eyes: Yes: Conjunctiva Clear HENT: Yes: Atraumatic Neck: Yes: Trachea Midline Cardiovascular: Yes: Regular Rate and Rhythm ...Palpate: Yes: Soft, Tenderness, Epigastium. No: Firm/Rigid, Guarding, Hepatomegaly, Pulsatile Mass, Splenomegaly Labs: CBC, BMP 10/27/16 06:15 10/27/16 06:15 INR, PTT INR 1.63 (0.82-1.09) H 10/26/16 07:15 Problem List - Problems (1) Acute mesenteric ischemia Assessment/Plan: --resolved R> advance diet continue iv hydration Code(s): K55.059 - ACUTE ISCHEMIA OF INTESTINE, PART AND EXTENT UNSPECIFIED
--- NOTE | 2016-10-27 18:52 | PN ---
Progress Note, Physician Chief Complaint: AWAKE ALERT MORE COMFORTABLE TODAY GI AND ID NOTES REVIEWED ONCOLOGY F/U APPRECIATED. I HAD A LONG MEETING WITH THE PATIENT AND HER FAMILY CASE REVIEWED AND QUESTIONS ANSWERED. SEVERITY OF HER DISEASE STATE EXPRESSED AND FAMILY AWARE OF HER POOR PROGNOSIS. - Current Medication List Current Medications: Active Medications Acetaminophen (Tylenol Suppository -) 650 mg [place] Q6H PRN PRN Reason: FEVER OR PAIN Albuterol Sulfate (Ventolin Hfa Inhaler -) 1 puff IH Q4H PRN PRN Reason: SHORT OF BREATH/WHEEZING Last Admin: 10/27/16 06:57 Dose: 1 puff Fentanyl (Duragesic 75mcg Patch -) 1 patch TD Q72H [facility] Last Admin: 10/26/16 18:28 Dose: 1 patch Gabapentin (Neurontin -) 300 mg PO BID [facility] Last Admin: 10/27/16 09:30 Dose: 300 mg Heparin Sodium (Porcine) (Heparin -) 5,000 unit SQ BID [facility] Last Admin: 10/27/16 09:31 Dose: 5,000 unit Hydromorphone HCl (Dilaudid Injection -) 2 mg IVPB Q4H PRN Last Admin: 10/27/16 14:09 Dose: 2 mg Metronidazole (Flagyl 500mg Premixed Ivpb -) 100 mls @ 100 mls/hr IVPB Q8H-IV [facility] Last Admin: 10/27/16 17:34 Dose: 100 mls/hr Dextrose/Sodium Chloride (D5-Ns -) 1,000 mls @ 175 mls/hr IV ASDIR [facility] Last Admin: 10/27/16 10:06 Dose: 175 mls/hr Miscellaneous (Duragesic Patch Waste) 1 each MC PRN PRN PRN Reason: PAIN Last Admin: 10/26/16 18:41 Dose: 1 each Ondansetron HCl (Zofran Injection) 4 mg IVPB Q6H PRN PRN Reason: NAUSEA Pantoprazole Sodium (Protonix 40mg Ivpb (Pre-Docked)) 40 mg IVPB DAILY@0800 [facility] Last Admin: 10/27/16 09:15 Dose: 40 mg Piperacillin Sod/Tazobactam Sod (Zosyn 3.375gm Ivpb (Pre-Docked)) 3.375 gm IVPB Q8H-IV [facility]O PRN Reason: Protocol Last Admin: 10/27/16 17:00 Dose: 3.375 gm Vancomycin HCl (Vancomycin (Pre-Docked)) 1,000 mg IVPB DAILY L[facility]O PRN Reason: Protocol - Objective Vital Signs: Vital Signs Temperature 97.7 F 10/27/16 16:30 Pulse Rate 76 10/27/16 16:30 Respiratory Rate 20 10/27/16 16:30 Blood Pressure 99/57 10/27/16 16:30 O2 Sat by Pulse Oximetry (%) 97 10/27/16 09:00 Constitutional: Yes: Mild Distress Eyes: Yes: WNL HENT: Yes: WNL Neck: Yes: WNL Cardiovascular: Yes: WNL Respiratory: Yes: WNL Gastrointestinal: Yes: Tenderness Genitourinary: Yes: WNL Musculoskeletal: Yes: Muscle Weakness Extremities: Yes: WNL Edema: No Peripheral Pulses WNL: Yes Integumentary: Yes: WNL Wound/Incision: Yes: Clean/Dry Neurological: Yes: WNL ...Motor Strength: WNL Psychiatric: Yes: WNL Labs: CBC, BMP 10/27/16 06:15 10/27/16 06:15 INR, PTT INR 1.63 (0.82-1.09) H 10/26/16 07:15 Problem List - Problems (1) Colitis Code(s): K52.9 - NONINFECTIVE GASTROENTERITIS AND COLITIS, UNSPECIFIED (2) Colon cancer Code(s): C18.9 - MALIGNANT NEOPLASM OF COLON, UNSPECIFIED Qualifiers: Colon location: unspecified part of colon Qualified Code(s): C18.9 - Malignant neoplasm of colon, unspecified (3) Acute ischemic colitis Code(s): K55.039 - ACUTE ISCHEMIA OF LARGE INTESTINE, EXTENT UNSPECIFIED Assessment/Plan 30 MINUTES SPENT IN FAMILY MEETING TODAY QUESTIONS ANSWERED SEVERITY OF DISEASE STATE EXPRESSED AND UNDERSTOOD BY PATIENT AND HER FAMILY. ADVANCE DIET TOLERATED PAIN CONTROL IVF IV ABX PER ID ONCOLOGY F/U GI NO TREATMENT RECOMMENDED AT THIS TIME
[2016-10-28] MEDS: METRONIDAZOLE 500 MG PREMIXED 100 ML IVPB SCH ×3 (01:57→18:52)
[2016-10-28] MEDS: HYDROmorphone HCL CARPU-JECT 2 MG/1 ML DISP.SYRIN IVPB PRN ×5 (02:28→23:29)
[2016-10-28] MEDS: PIPERACILLIN/TAZOB 3.375 GM/50 ML PRE-DOCKED IVPB SCH ×2 (03:06→09:37)
[2016-10-28] MEDS: DEXTROSE 5%-NORMAL SALINE 1,000 ML IV SCH (06:00)
[2016-10-28 07:54] LABS: MCH 30.1 pg (25.7-33.7); MCHC 32.3 g/dl (32.0-36.0); MEAN CELL VOLUME 93.2 fl (80-96); MEAN PLT VOLUME 7.7 fl (7.5-11.1); PLATELET COUNT 89 K/MM3 (134-434); RDW 17.6 % (11.6-15.6); WHITE BLOOD COUNT 9.8 K/mm3 (4.0-10.0)
[2016-10-28 08:25] LABS: ALBUMIN 1.5 g/dl (3.4-5.0); CALCIUM 7.7 mg/dL (8.5-10.1); COCKROFT - GAULT 37.7485; CREATININE 1.6 mg/dL (0.55-1.02)
[2016-10-28 08:29] LABS: BILIRUBIN,TOTAL 2.4 mg/dL (0.2-1.0); TOT PROT 7.2 g/dl (6.4-8.2)
[2016-10-28] MEDS ORDERED: PT OWN MED DRAWER 7, Y5N ONE ×3 (08:34→23:42)
[2016-10-28] MEDS: ALBUTEROL SO4 6.7 GM HFA INHALER IH PRN ×2 (09:33→23:40)
[2016-10-28] MEDS: PANTOPRAZOLE SODIUM 40 MG/100 ML PRE-DOCKED IVPB SCH ×2 (09:50→12:21)
[2016-10-28] MEDS: HEPARIN NA (PORCINE) 5,000 UNITS/ML 1ML VIAL SQ SCH ×2 (09:54→21:56)
[2016-10-28] MEDS: GABAPENTIN 300 MG CAPSULE (FP) PO SCH ×2 (09:54→21:56)
[2016-10-28] MEDS ORDERED: VANCOMYCIN 1 GRAM (PRE-DOCKED) 1,000 MG/250 ML BAG IVPB SCH ×2 (10:00→12:00)
--- NOTE | 2016-10-28 12:00 | PN ---
Progress Note, Physician History of Present Illness: medical coverage alert,less abd pain,tolerated po this morninh. pt c/o occ chest discomfort,+occ sob at night - Current Medication List Current Medications: Active Medications Acetaminophen (Tylenol Suppository -) 650 mg HI Q6H PRN PRN Reason: FEVER OR PAIN Albuterol Sulfate (Ventolin Hfa Inhaler -) 1 puff IH Q4H PRN PRN Reason: SHORT OF BREATH/WHEEZING Last Admin: 10/28/16 09:33 Dose: 1 puff Fentanyl (Duragesic 75mcg Patch -) 1 patch TD Q72H [facility] Last Admin: 10/26/16 18:28 Dose: 1 patch Gabapentin (Neurontin -) 300 mg PO BID [facility] Last Admin: 10/28/16 09:54 Dose: 300 mg Heparin Sodium (Porcine) (Heparin -) 5,000 unit SQ BID [facility] Last Admin: 10/28/16 09:54 Dose: 5,000 unit Hydromorphone HCl (Dilaudid Injection -) 2 mg IVPB Q4H PRN Last Admin: 10/28/16 08:30 Dose: 2 mg Metronidazole (Flagyl 500mg Premixed Ivpb -) 100 mls @ 100 mls/hr IVPB Q8H-IV [facility] Last Admin: 10/28/16 09:46 Dose: 100 mls/hr Dextrose/Sodium Chloride (D5-Ns -) 1,000 mls @ 175 mls/hr IV ASDIR [facility] Last Admin: 10/28/16 06:00 Dose: 175 mls/hr Miscellaneous (Duragesic Patch Waste) 1 each MC PRN PRN PRN Reason: PAIN Last Admin: 10/26/16 18:41 Dose: 1 each Ondansetron HCl (Zofran Injection) 4 mg IVPB Q6H PRN PRN Reason: NAUSEA Pantoprazole Sodium (Protonix 40mg Ivpb (Pre-Docked)) 40 mg IVPB DAILY [facility] Piperacillin Sod/Tazobactam Sod (Zosyn 3.375gm Ivpb (Pre-Docked)) 3.375 gm IVPB Q8H-IV [facility]O PRN Reason: Protocol Last Admin: 10/28/16 09:37 Dose: 3.375 gm Vancomycin HCl (Vancomycin (Pre-Docked)) 1,000 mg IVPB DAILY@1200 L[facility]O PRN Reason: Protocol - Objective Vital Signs: Vital Signs Temperature 98.5 F 10/28/16 06:37 Pulse Rate 67 10/28/16 06:37 Respiratory Rate 20 10/28/16 06:37 Blood Pressure 137/69 10/28/16 06:37 O2 Sat by Pulse Oximetry (%) 97 10/27/16 20:42 Constitutional: Yes: Calm, Thin Eyes: Yes: WNL HENT: Yes: WNL Neck: Yes: WNL Cardiovascular: Yes: Regular Rate and Rhythm, S1, S2 Respiratory: Yes: CTA Bilaterally Gastrointestinal: Yes: Soft, Tenderness Extremities: Yes: WNL Edema: No Labs: CBC, BMP 10/28/16 06:30 10/28/16 06:30 INR, PTT INR 1.63 (0.82-1.09) H 10/26/16 07:15 Assessment/Plan Problem List - Problems (1) Colitis Code(s): K52.9 - NONINFECTIVE GASTROENTERITIS AND COLITIS, UNSPECIFIED (2) Colon cancer Code(s): C18.9 - MALIGNANT NEOPLASM OF COLON, UNSPECIFIED Qualifiers: Colon location: unspecified part of colon Qualified Code(s): C18.9 - Malignant neoplasm of colon, unspecified (3) Acute ischemic colitis Code(s): K55.039 - ACUTE ISCHEMIA OF LARGE INTESTINE, EXTENT UNSPECIFIED 4 acute kidney injury Assessment/Plan ADVANCE DIET TOLERATED PAIN CONTROL IVF IV ABX PER ID MONITOR RONALDO RENAL CONSULT INHALED BRONCHODILATORS DR KERNS
--- NOTE | 2016-10-28 13:35 | CONSULT ---
Consult Consult Specialty:: Nephrology Reason for Consultation:: ALEJANDRA - History of Present Illness Chief Complaint: abdominal pain History of Present Illness: Pt is a 61 year old female with pmhx of metastatic colon cancer, HTN and COPD who presents the ER with abdominal pain. She says she had diarrhea and vomiting before the admission. She was admitted for treatment of mesenteric ischemia. She feels the pain is better today. She developed acute renal failure and I was called to evaluate her. She denies history of CKD. She denies dysuria or hematuria. - History Source History Provided By: Patient, Medical Record - Past Medical History Cardio/Vascular: Yes: HTN Pulmonary: Yes: COPD Gastrointestinal: Yes: Cancer, Other (colon cancer) - Alcohol/Substance Use Hx Alcohol Use: No - Smoking History Smoking history: Former smoker Have you smoked in the past 12 months: No Home Medications - Allergies Allergies/Adverse Reactions: Allergies Allergy/AdvReac Type Severity Reaction Status Date / Time amitriptyline Allergy Verified 10/26/16 06:55 iv contrast Allergy Uncoded 10/26/16 06:55 - Home Medications Home Medications: Ambulatory Orders Acetaminophen [Tylenol] 650 mg PO QID PRN 10/26/16 Albuterol Sulfate Inhaler - [Ventolin Hfa Inhaler -] 1 - 2 inh PO Q4H 10/26/16 Docusate Sodium [Colace -] 100 mg PO BID 10/26/16 FENTANYL 75mcg PATCH [DURAGESIC 75mcg PATCH -] 1 each TD Q72H 10/26/16 Gabapentin [Neurontin -] 300 mg PO Q8H 10/26/16 Hydromorphone [Dilaudid -] 4 mg PO Q6H 10/26/16 Lorazepam 0.5 mg PO ASDIR 10/26/16 Pantoprazole Sodium [Protonix] 40 mg PO DAILY 10/26/16 Polyethylene Glycol 3350 [Miralax (For Daily Use) -] 17 gm PO DAILY 10/26/16 Sennosides [Senna] 8.6 mg PO HS 10/26/16 Tizanidine HCl [Zanaflex] 2 mg PO ASDIR 10/26/16 Family Disease History - Family Disease History Family History: Denies Review of Systems - Review of Systems Constitutional: reports: Malaise Eyes: reports: No Symptoms HENT: reports: No Symptoms Neck: reports: No Symptoms Cardiovascular: reports: No Symptoms Respiratory: reports: No Symptoms Gastrointestinal: reports: Abdominal Pain, Constipation, Diarrhea Genitourinary: reports: No Symptoms Musculoskeletal: reports: Muscle Weakness Neurological: reports: No Symptoms Endocrine: reports: No Symptoms Hematology/Lymphatic: reports: No Symptoms Psychiatric: reports: No Symptoms Physical Exam Vital Signs: Vital Signs Temperature 98.5 F 10/28/16 06:37 Pulse Rate 67 10/28/16 06:37 Respiratory Rate 20 10/28/16 06:37 Blood Pressure 137/69 10/28/16 06:37 O2 Sat by Pulse Oximetry (%) 97 10/27/16 20:42 Constitutional: Yes: Calm Eyes: Yes: Conjunctiva Clear HENT: Yes: Atraumatic Neck: Yes: Supple Cardiovascular: Yes: S1, S2 Respiratory: Yes: CTA Bilaterally Gastrointestinal: Yes: Soft, Tenderness Musculoskeletal: Yes: WNL Edema: No Neurological: Yes: Oriented Psychiatric: Yes: Oriented Labs: CBC, BMP 10/28/16 06:30 10/28/16 06:30 Laboratory Tests 10/26/16 10/26/16 10/26/16 07:15 07:15 07:15 WBC Hgb 9.5 L Plt Count Sodium Potassium Chloride Carbon Dioxide Anion Gap BUN Creatinine 0.8 Lactic Acid 2.987 H* 10/26/16 10/27/16 10/27/16 09:13 06:15 06:15 WBC Hgb 8.4 L D Plt Count Sodium Potassium Chloride Carbon Dioxide Anion Gap BUN Creatinine 1.5 H D Lactic Acid 2.119 H* 10/28/16 10/28/16 06:30 06:30 WBC 9.8 Hgb 8.5 L Plt Count 89 L Sodium 143 Potassium 3.5 Chloride 110 H Carbon Dioxide 21 Anion Gap 12 BUN 19 H Creatinine 1.6 H Lactic Acid Imaging - Results Cat Scan: Report Reviewed Problem List - Problems (1) Acute ischemic colitis Code(s): K55.039 - ACUTE ISCHEMIA OF LARGE INTESTINE, EXTENT UNSPECIFIED (2) Acute mesenteric ischemia Code(s): K55.059 - ACUTE ISCHEMIA OF INTESTINE, PART AND EXTENT UNSPECIFIED (3) Colitis Code(s): K52.9 - NONINFECTIVE GASTROENTERITIS AND COLITIS, UNSPECIFIED (4) Colon cancer Code(s): C18.9 - MALIGNANT NEOPLASM OF COLON, UNSPECIFIED Qualifiers: Colon location: unspecified part of colon Qualified Code(s): C18.9 - Malignant neoplasm of colon, unspecified (5) ALEJANDRA (acute kidney injury) Code(s): N17.9 - ACUTE KIDNEY FAILURE, UNSPECIFIED Assessment/Plan Current Medications Generic Name Dose Route Start Last Admin Trade Name Freq PRN Reason Stop Dose Admin Acetaminophen 650 mg 10/26/16 17:40 Tylenol Suppository - [place] Q6H PRN FEVER OR PAIN Albuterol Sulfate 1 puff 10/27/16 05:29 10/28/16 09:33 Ventolin Hfa Inhaler - IH 1 puff Q4H PRN Administration SHORT OF BREATH/WHEEZING Fentanyl 1 patch 10/26/16 17:45 10/26/16 18:28 Duragesic 75mcg Patch - TD 1 patch Q72H [facility]O Administration Gabapentin 300 mg 10/26/16 22:00 10/28/16 09:54 Neurontin - PO 300 mg BID [facility]O Administration Heparin Sodium (Porcine) 5,000 unit 10/26/16 22:00 10/28/16 09:54 Heparin - SQ 5,000 unit BID LAMBERTO Administration Hydromorphone HCl 2 mg 10/26/16 22:53 10/28/16 08:30 Dilaudid Injection - IVPB 2 mg Q4H PRN Administration Metronidazole 100 mls @ 100 mls/hr 10/26/16 14:00 10/28/16 09:46 Flagyl 500mg Premixed Ivpb - IVPB 100 mls/hr Q8H-IV [facility] Administration Dextrose/Sodium Chloride 1,000 mls @ 175 mls/hr 10/26/16 20:13 10/28/16 06:00 D5-Ns - IV 175 mls/hr ASDIR [facility]O Administration Miscellaneous 1 each 10/26/16 17:40 10/26/16 18:41 Duragesic Patch Waste MC 1 each PRN PRN Administration PAIN Ondansetron HCl 4 mg 10/26/16 17:40 Zofran Injection IVPB Q6H PRN NAUSEA Pantoprazole Sodium 40 mg 10/28/16 09:51 10/28/16 12:21 Protonix 40mg Ivpb (Pre-Docked) IVPB Not Given DAILY [facility] Piperacillin Sod/Tazobactam Sod 3.375 gm 10/26/16 16:00 10/28/16 09:37 Zosyn 3.375gm Ivpb (Pre-Docked) IVPB 3.375 gm Q8H-IV [facility] Administration Protocol Vancomycin HCl 1,000 mg 10/28/16 12:00 10/28/16 12:33 Vancomycin (Pre-Docked) IVPB 1,000 mg DAILY@1200 [facility] Administration Protocol Impression 1. ALEJANDRA 2. colon cancer with mets 3. htn 4. messenteric ischemia 5. colitis Plan - cont IV hydration, recommend decreasing rate - send pt for renal ultrasound - check urine sodium and creatinine to calc fena - repeat labs in am - avoid nephrotoxins - check vanco level - will comment more on etiology of ALEJANDRA after reviewing the urine studies Dr Dugan
[2016-10-28] MEDS ORDERED: DEXTROSE 5%-NORMAL SALINE 1,000 ML IV SCH (13:42)
--- NOTE | 2016-10-28 13:52 | PN ---
Progress Note (short form) - Note Progress Note: awake and alert back pain still present abdominal pain still present no fevers no diarrhea one soft bm today Vital Signs Period Temp Pulse Resp BP Sys/Erickson Pulse Ox Last 24 Hr 97.4 F-98.5 F 67-79 18-20 99-137/57-69 97 cor-rrr lungs clear decreased bs at bases abd soft,diffuse abdominal discomfort to palpation ext no edema CBC, BMP 10/28/16 06:30 10/28/16 06:30 Microbiology 10/26/16 09:24 Urine - Urine Clean Catch Urine Culture - Preliminary Strep Agalactiae Group B 10/26/16 07:15 Blood - Peripheral Venous Blood Culture - Preliminary Strep Agalactiae Group B 10/26/16 07:15 Blood - Peripheral Venous Blood Culture - Preliminary Strep Agalactiae Group B a/p sepsis-group b strep (urine and blood-), switch to rocephin/flagyl colitis by ct scan metastatic colon cancer-mets to liver, lung, bone (back s/p RT) clinically improved repeat blood cultures sent echo pending
[2016-10-28] MEDS: cefTRIAXone 2 GM/100 ML BAG (PRE-DOCKED) IVPB SCH (15:31)
--- NOTE | 2016-10-28 16:52 | PN ---
Progress Note (short form) - Note Progress Note: Patient seen and examined c/o severe generalized pain. ? myoclonic jerks Last Vital Signs Temp Pulse Resp BP Pulse Ox 97.8 F 78 20 137/69 97 10/28/16 15:11 10/28/16 15:11 10/28/16 15:11 10/28/16 06:37 10/27/16 20:42 Cor: RSR, No murmurs, No gallops Lungs: Clear to P&A Abd: Soft, Normal bowel sounds, No organomegaly Ext:No significant edema Abnormal Lab Results 10/28/16 10/28/16 06:30 06:30 RBC 2.83 L Hgb 8.5 L Hct 26.4 L RDW 17.6 H Plt Count 89 L Chloride 110 H BUN 19 H Creatinine 1.6 H Calcium 7.7 L Total Bilirubin 2.4 H AST 82 H Alkaline Phosphatase 405 H Albumin 1.5 L Home Medication List Medication Instructions Recorded Confirmed Type Acetaminophen [Tylenol] 650 mg PO QID PRN 10/26/16 10/26/16 History Albuterol Sulfate Inhaler - 1 - 2 inh PO Q4H 10/26/16 10/26/16 History [Ventolin Hfa Inhaler -] Docusate Sodium [Colace -] 100 mg PO BID 10/26/16 10/26/16 History FENTANYL 75mcg PATCH [DURAGESIC 1 each TD Q72H 10/26/16 10/26/16 History 75mcg PATCH -] Gabapentin [Neurontin -] 300 mg PO Q8H 10/26/16 10/26/16 History Hydromorphone [Dilaudid -] 4 mg PO Q6H 10/26/16 10/26/16 History Lorazepam 0.5 mg PO ASDIR 10/26/16 10/26/16 History Pantoprazole Sodium [Protonix] 40 mg PO DAILY 10/26/16 10/26/16 History Polyethylene Glycol 3350 [Miralax 17 gm PO DAILY 10/26/16 10/26/16 History (For Daily Use) -] Sennosides [Senna] 8.6 mg PO HS 10/26/16 10/26/16 History Tizanidine HCl [Zanaflex] 2 mg PO ASDIR 10/26/16 10/26/16 History Active Medications Generic Name Dose Route Start Last Admin Trade Name Freq PRN Reason Stop Dose Admin Acetaminophen 650 mg 10/26/16 17:40 Tylenol Suppository - IA Q6H PRN FEVER OR PAIN Albuterol Sulfate 1 puff 10/27/16 05:29 10/28/16 09:33 Ventolin Hfa Inhaler - IH 1 puff Q4H PRN Administration SHORT OF BREATH/WHEEZING Ceftriaxone Sodium 2 gm 10/28/16 14:00 10/28/16 15:31 Rocephin 2gm Ivpb (Pre-Docked) IVPB 2 gm DAILY LAMBERTO Administration Protocol Fentanyl 1 patch 10/26/16 17:45 10/26/16 18:28 Duragesic 75mcg Patch - TD 1 patch Q72H LAMBERTO Administration Gabapentin 300 mg 10/26/16 22:00 10/28/16 09:54 Neurontin - PO 300 mg BID LAMBERTO Administration Heparin Sodium (Porcine) 5,000 unit 10/26/16 22:00 10/28/16 09:54 Heparin - SQ 5,000 unit BID LAMBERTO Administration Hydromorphone HCl 2 mg 10/26/16 22:53 10/28/16 15:21 Dilaudid Injection - IVPB 2 mg Q4H PRN Administration Metronidazole 100 mls @ 100 mls/hr 10/26/16 14:00 10/28/16 09:46 Flagyl 500mg Premixed Ivpb - IVPB 100 mls/hr Q8H-IV LAMBERTO Administration Dextrose/Sodium Chloride 1,000 mls @ 150 mls/hr 10/28/16 13:42 10/28/16 15:31 D5-Ns - IV 150 mls/hr ASDIR LAMBERTO Administration Miscellaneous 1 each 10/26/16 17:40 10/26/16 18:41 Duragesic Patch Waste MC 1 each PRN PRN Administration PAIN Ondansetron HCl 4 mg 10/26/16 17:40 Zofran Injection IVPB Q6H PRN NAUSEA Pantoprazole Sodium 40 mg 10/28/16 09:51 10/28/16 12:21 Protonix 40mg Ivpb (Pre-Docked) IVPB Not Given DAILY LAMBERTO A/P 61 y/o patient with sepsis-group b strep (urine and blood-), on rocephin/flagyl colitis by ct scan metastatic colon cancer-mets to liver, lung, bone (back s/p RT) end stage disease with diffuse pain,poor performance status increase dilaudid ? myoclonus due to dilaudid check CT head/neuro consult palliative care consult
--- NOTE | 2016-10-28 17:46 | PN ---
GI Progress Note Subjective: compared to last evening she has redeveloped abdominal pain after a full liqyid diet, WBC 9800, group B strept bacteremia,group B strept in the urin - Objective Vital Signs: Vital Signs Temperature 97.8 F 10/28/16 15:11 Pulse Rate 78 10/28/16 15:11 Respiratory Rate 20 10/28/16 16:53 Blood Pressure 137/69 10/28/16 06:37 O2 Sat by Pulse Oximetry (%) 97 10/28/16 16:53 Constitutional: Well Nourished Eyes: Yes: Conjunctiva Clear HENT: Yes: Atraumatic Neck: Yes: Trachea Midline Cardiovascular: No: Regular Rate and Rhythm ...Palpate: Yes: Soft, Tenderness (--diffuse). No: Firm/Rigid, Tenderness, Rebound ...Percussion: Yes: Fluid Wave Labs: CBC, BMP 10/28/16 06:30 10/28/16 06:30 INR, PTT INR 1.63 (0.82-1.09) H 10/26/16 07:15 Problem List - Problems (1) Acute mesenteric ischemia Assessment/Plan: R> continue IV hydration continue antibiotics ?urosepsis Code(s): K55.059 - ACUTE ISCHEMIA OF INTESTINE, PART AND EXTENT UNSPECIFIED
[2016-10-28] MEDS ORDERED: HYDROmorphone HCL CARPU-JECT 1 MG/1 ML DISP.SYRIN IVPB ONE (18:05)
[2016-10-28] MEDS ORDERED: HYDROmorphone HCL CARPU-JECT 2 MG/1 ML DISP.SYRIN IVPB PRN (18:06)
[2016-10-28 22:39] LABS: URINE APPEARANCE CLEAR; URINE BILIRUBIN NEGATIVE (NEGATIVE); URINE COLOR AMBER; URINE GLUCOSE (UA) NEGATIVE (NEGATIVE); URINE KETONE NEGATIVE (NEGATIVE); URINE NITRITE NEGATIVE (NEGATIVE); URINE UROBILINOGEN NEGATIVE E.U./dl (0.2-1.0)
[2016-10-28 22:40] LABS: URINE BLOOD 1+ (NEGATIVE); URINE LEUK ESTERASE 1+ (NEGATIVE); URINE PROTEIN 1+ (NEGATIVE)
[2016-10-28 22:42] LABS: URINE BACTERIA RARE /hpf (NONE SEEN); URINE HYALINE CAST 1 /lpf; URINE RBC 1 /hpf (0-3); URINE WBC 7 /hpf (3-5)
[2016-10-29] MEDS: METRONIDAZOLE 500 MG PREMIXED 100 ML IVPB SCH ×3 (01:21→18:23)
[2016-10-29] MEDS ORDERED: PT OWN MED DRAWER 7, Y5N ONE ×2 (04:33→09:05)
[2016-10-29] MEDS: HYDROmorphone HCL CARPU-JECT 2 MG/1 ML DISP.SYRIN IVPB PRN ×5 (04:40→17:39)
[2016-10-29] MEDS: ALBUTEROL SO4 6.7 GM HFA INHALER IH PRN ×2 (05:17→09:06)
--- NOTE | 2016-10-29 09:33 | PN ---
Progress Note (short form) - Note Progress Note: Medical coverage for Dr Yoder. Awake and alert. Still with pain issues. Daughter at the bedside. [place] like she was wheezing overnight -> SOB. No CP. Intake & Output 10/26/16 10/27/16 10/28/16 10/29/16 23:59 23:59 23:59 23:59 Intake Total 550 2400 2250 900 Output Total 200 100 400 Balance 350 2300 1850 900 Weight 141 lb Last Vital Signs Temp Pulse Resp BP Pulse Ox 98 F 94 H 18 143/76 97 10/29/16 06:21 10/29/16 09:08 10/29/16 09:08 10/29/16 09:08 10/28/16 21:00 Active Medications Acetaminophen (Tylenol Suppository -) 650 mg DC Q6H PRN PRN Reason: FEVER OR PAIN Albuterol Sulfate (Ventolin Hfa Inhaler -) 1 puff IH Q4H PRN PRN Reason: SHORT OF BREATH/WHEEZING Last Admin: 10/29/16 09:06 Dose: 1 puff Ceftriaxone Sodium (Rocephin 2gm Ivpb (Pre-Docked)) 2 gm IVPB DAILY LAMBERTO PRN Reason: Protocol Last Admin: 10/28/16 15:31 Dose: 2 gm Fentanyl (Duragesic 75mcg Patch -) 1 patch TD Q72H LAMBERTO Last Admin: 10/26/16 18:28 Dose: 1 patch Gabapentin (Neurontin -) 300 mg PO BID LAMBERTO Last Admin: 10/28/16 21:56 Dose: 300 mg Heparin Sodium (Porcine) (Heparin -) 5,000 unit SQ BID LAMBERTO Last Admin: 10/28/16 21:56 Dose: 5,000 unit Hydromorphone HCl (Dilaudid Injection -) 2 mg IVPB Q3H PRN PRN Reason: BACK PAIN Last Admin: 10/29/16 08:33 Dose: 2 mg Metronidazole (Flagyl 500mg Premixed Ivpb -) 100 mls @ 100 mls/hr IVPB Q8H-IV LAMBERTO Last Admin: 10/29/16 01:21 Dose: 100 mls/hr Dextrose/Sodium Chloride (D5-Ns -) 1,000 mls @ 150 mls/hr IV ASDIR LAMBERTO Last Admin: 10/28/16 15:31 Dose: 150 mls/hr Miscellaneous (Duragesic Patch Waste) 1 each MC PRN PRN PRN Reason: PAIN Last Admin: 10/26/16 18:41 Dose: 1 each Ondansetron HCl (Zofran Injection) 4 mg IVPB Q6H PRN PRN Reason: NAUSEA Pantoprazole Sodium (Protonix 40mg Ivpb (Pre-Docked)) 40 mg IVPB DAILY LAMBERTO Last Admin: 10/28/16 12:21 Dose: Not Given Constitutional: Yes: Awake and alert, Thin Eyes: Yes: WNL HENT: Yes: WNL Neck: Yes: WNL Cardiovascular: Yes: Regular Rate and Rhythm, S1, S2 Respiratory: Yes: Few scattered rhonchi Gastrointestinal: Yes: Soft, Tenderness Extremities: Yes: WNL Edema: No Labs: Laboratory Results - last 24 hr 10/28/16 10/28/16 10/28/16 20:35 20:35 20:35 Urine Color Katarina Urine Appearance Clear Urine pH 5.0 Urine Protein 1+ H Urine Glucose (UA) Negative Urine Ketones Negative Urine Blood 1+ H Urine Nitrite Negative Urine Bilirubin Negative Urine Urobilinogen Negative Ur Leukocyte Esterase 1+ H Urine RBC 1 Urine WBC 7 Ur Epithelial Cells Rare Urine Bacteria Rare Hyaline Casts 1 Ur Random Sodium 42 Ur Random Potassium 27.8 Ur Random Chloride 60 Urine Creatinine 92.9 Assessment/Plan Problem List - Problems (1) Colitis Code(s): K52.9 - NONINFECTIVE GASTROENTERITIS AND COLITIS, UNSPECIFIED (2) Colon cancer Code(s): C18.9 - MALIGNANT NEOPLASM OF COLON, UNSPECIFIED Qualifiers: Colon location: unspecified part of colon Qualified Code(s): C18.9 - Malignant neoplasm of colon, unspecified (3) Acute ischemic colitis Code(s): K55.039 - ACUTE ISCHEMIA OF LARGE INTESTINE, EXTENT UNSPECIFIED 4 acute kidney injury Assessment/Plan BD TX PRN Pain consult has been called -> currently getting Fentanyl 75 mcg patch and Dilaudid 2mg IVP Q3 hours PO as tolerated IVF ABX per ID SQ Heparin BID Dr Bridges
[2016-10-29] MEDS: ALBUTEROL SO4 0.083% IH SOL 2.5 MG/3 ML VIAL.NEB. NEB PRN ×2 (10:15→17:25)
[2016-10-29] MEDS: cefTRIAXone 2 GM/100 ML BAG (PRE-DOCKED) IVPB SCH (10:38)
[2016-10-29] MEDS: PANTOPRAZOLE SODIUM 40 MG/100 ML PRE-DOCKED IVPB SCH (10:45)
[2016-10-29] MEDS: GABAPENTIN 300 MG CAPSULE (FP) PO SCH ×2 (10:46→22:11)
[2016-10-29] MEDS: HEPARIN NA (PORCINE) 5,000 UNITS/ML 1ML VIAL SQ SCH ×2 (10:46→22:11)
--- NOTE | 2016-10-29 13:26 | PN ---
Progress Note, Physician History of Present Illness: Pt seen and examined at bedside. She is more confused today. She complains of pain. - Current Medication List Current Medications: Active Medications Acetaminophen (Tylenol Suppository -) 650 mg HI Q6H PRN PRN Reason: FEVER OR PAIN Albuterol Sulfate (Ventolin Hfa Inhaler -) 1 puff IH Q4H PRN PRN Reason: SHORT OF BREATH/WHEEZING Last Admin: 10/29/16 09:06 Dose: 1 puff Albuterol Sulfate (Ventolin 0.083% Nebulizer Soln -) 1 amp NEB Q4H PRN PRN Reason: SHORT OF BREATH/WHEEZING Ceftriaxone Sodium (Rocephin 2gm Ivpb (Pre-Docked)) 2 gm IVPB DAILY LAMBERTO PRN Reason: Protocol Last Admin: 10/29/16 10:38 Dose: 2 gm Fentanyl (Duragesic 75mcg Patch -) 1 patch TD Q72H LAMBERTO Last Admin: 10/26/16 18:28 Dose: 1 patch Gabapentin (Neurontin -) 300 mg PO BID [facility] Last Admin: 10/29/16 10:46 Dose: 300 mg Heparin Sodium (Porcine) (Heparin -) 5,000 unit SQ BID LAMBERTO Last Admin: 10/29/16 10:46 Dose: 5,000 unit Hydromorphone HCl (Dilaudid Injection -) 2 mg IVPB Q3H PRN PRN Reason: BACK PAIN Last Admin: 10/29/16 11:38 Dose: 2 mg Metronidazole (Flagyl 500mg Premixed Ivpb -) 100 mls @ 100 mls/hr IVPB Q8H-IV LAMBERTO Last Admin: 10/29/16 10:44 Dose: 100 mls/hr Dextrose/Sodium Chloride (D5-Ns -) 1,000 mls @ 150 mls/hr IV ASDIR LAMBERTO Last Admin: 10/28/16 15:31 Dose: 150 mls/hr Lorazepam (Ativan -) 0.5 mg PO TID PRN PRN Reason: ANXIETY Miscellaneous (Duragesic Patch Waste) 1 each MC PRN PRN PRN Reason: PAIN Last Admin: 10/26/16 18:41 Dose: 1 each Ondansetron HCl (Zofran Injection) 4 mg IVPB Q6H PRN PRN Reason: NAUSEA Pantoprazole Sodium (Protonix 40mg Ivpb (Pre-Docked)) 40 mg IVPB DAILY LAMBERTO Last Admin: 10/29/16 10:45 Dose: 40 mg - Objective Vital Signs: Vital Signs Temperature 98 F 10/29/16 06:21 Pulse Rate 94 H 10/29/16 09:08 Respiratory Rate 18 10/29/16 09:08 Blood Pressure 143/76 10/29/16 09:08 O2 Sat by Pulse Oximetry (%) 97 10/28/16 21:00 Constitutional: Yes: Calm HENT: Yes: Atraumatic Cardiovascular: Yes: S1, S2 Respiratory: Yes: CTA Bilaterally, On Nasal O2 Gastrointestinal: Yes: Soft Genitourinary: Yes: WNL Musculoskeletal: Yes: Muscle Weakness Edema: No Neurological: Yes: Confusion Labs: CBC, BMP 10/28/16 06:30 10/28/16 06:30 INR, PTT INR 1.63 (0.82-1.09) H 10/26/16 07:15 Problem List - Problems (1) Acute ischemic colitis Code(s): K55.039 - ACUTE ISCHEMIA OF LARGE INTESTINE, EXTENT UNSPECIFIED (2) Acute mesenteric ischemia Code(s): K55.059 - ACUTE ISCHEMIA OF INTESTINE, PART AND EXTENT UNSPECIFIED (3) Colitis Code(s): K52.9 - NONINFECTIVE GASTROENTERITIS AND COLITIS, UNSPECIFIED (4) Colon cancer Code(s): C18.9 - MALIGNANT NEOPLASM OF COLON, UNSPECIFIED Qualifiers: Colon location: unspecified part of colon Qualified Code(s): C18.9 - Malignant neoplasm of colon, unspecified (5) ALEJANDRA (acute kidney injury) Code(s): N17.9 - ACUTE KIDNEY FAILURE, UNSPECIFIED Assessment/Plan Current Medications Generic Name Dose Route Start Last Admin Trade Name Freq PRN Reason Stop Dose Admin Acetaminophen 650 mg 10/26/16 17:40 Tylenol Suppository - HI Q6H PRN FEVER OR PAIN Albuterol Sulfate 1 puff 10/27/16 05:29 10/29/16 09:06 Ventolin Hfa Inhaler - IH 1 puff Q4H PRN Administration SHORT OF BREATH/WHEEZING Albuterol Sulfate 1 amp 10/29/16 09:35 Ventolin 0.083% Nebulizer Soln - NEB Q4H PRN SHORT OF BREATH/WHEEZING Ceftriaxone Sodium 2 gm 10/28/16 14:00 10/29/16 10:38 Rocephin 2gm Ivpb (Pre-Docked) IVPB 2 gm DAILY LAMBERTO Administration Protocol Fentanyl 1 patch 10/26/16 17:45 10/26/16 18:28 Duragesic 75mcg Patch - TD 1 patch Q72H LAMBERTO Administration Gabapentin 300 mg 10/26/16 22:00 10/29/16 10:46 Neurontin - PO 300 mg BID LAMBERTO Administration Heparin Sodium (Porcine) 5,000 unit 10/26/16 22:00 10/29/16 10:46 Heparin - SQ 5,000 unit BID LAMBERTO Administration Hydromorphone HCl 2 mg 10/28/16 18:08 10/29/16 11:38 Dilaudid Injection - IVPB 2 mg Q3H PRN Administration BACK PAIN Metronidazole 100 mls @ 100 mls/hr 10/26/16 14:00 10/29/16 10:44 Flagyl 500mg Premixed Ivpb - IVPB 100 mls/hr Q8H-IV LAMBERTO Administration Dextrose/Sodium Chloride 1,000 mls @ 150 mls/hr 10/28/16 13:42 10/28/16 15:31 D5-Ns - IV 150 mls/hr ASDIR LAMBERTO Administration Lorazepam 0.5 mg 10/29/16 13:16 Ativan - PO TID PRN ANXIETY Miscellaneous 1 each 10/26/16 17:40 10/26/16 18:41 Duragesic Patch Waste MC 1 each PRN PRN Administration PAIN Ondansetron HCl 4 mg 10/26/16 17:40 Zofran Injection IVPB Q6H PRN NAUSEA Pantoprazole Sodium 40 mg 10/28/16 09:51 10/29/16 10:45 Protonix 40mg Ivpb (Pre-Docked) IVPB 40 mg DAILY LAMBERTO Administration Impression 1. ALEJANDRA 2. colon cancer with mets 3. htn 4. messenteric ischemia 5. colitis Plan - renal function is slightly worse today - repeat bmp in am - renal ultrasound reviewed - discussed care with pt and family - FENa is about 0.47% which is consistent with pre-renal disease - cont with fluids for now - will follow - check vanco level Dr Dugan
[2016-10-29] MEDS: DEXTROSE 5%-NORMAL SALINE 1,000 ML IV SCH (14:48)
[2016-10-29] MEDS: LORazepam 0.5 MG TABLET PO PRN (15:28)
--- NOTE | 2016-10-29 16:02 | PN ---
Progress Note (short form) - Note Progress Note: awake and alert abdominal pain continues- pain meds increased no fevers no diarrhea one soft bm today, no diarrhea Vital Signs Period Temp Pulse Resp BP Sys/Erickson Pulse Ox Last 24 Hr 98 F-98.2 F 80-100 18-20 134-143/76-107 97-97 cor-rrr lungs clear abd soft,diffuse tenderness to palpation, +BS ext no edema CBC, BMP 10/28/16 06:30 10/28/16 06:30 Microbiology 10/26/16 07:15 Blood - Peripheral Venous Blood Culture - Final Strep Agalactiae Group B 10/29/16 09:00 Stool Clostridium difficile Antigen (ALEN) - Final 10/29/16 09:00 Stool Clostridium difficile Toxin Assay - Final 10/28/16 06:30 Blood - Peripheral Venous Blood Culture - Preliminary NO GROWTH OBTAINED AFTER 24 HOURS, INCUBATION TO CONTINUE FOR 4 DAYS. 10/28/16 06:30 Blood - Peripheral Venous Blood Culture - Preliminary NO GROWTH OBTAINED AFTER 24 HOURS, INCUBATION TO CONTINUE FOR 4 DAYS. 10/26/16 09:24 Urine - Urine Clean Catch Urine Culture - Final Strep Agalactiae Group B 10/26/16 07:15 Blood - Peripheral Venous Blood Culture - Preliminary Strep Agalactiae Group B echo- limited study a/p sepsis-group b strep (urine and blood-), switch to rocephin/flagyl repeat blood cultures negative colitis by ct scan-cdiff antigen positive, toxin negative- i donot think she has cdiff metastatic colon cancer-mets to liver, lung, bone (back s/p RT)
[2016-10-29] MEDS: fentaNYL 75mcg/hr PATCH.TD72 TD SCH (17:39)
--- NOTE | 2016-10-29 19:05 | CONSULT ---
Consult Consult Specialty:: pain medicine Referred by:: dr perez Reason for Consultation:: abdominal pain - History of Present Illness Chief Complaint: abdominal pain History of Present Illness: 61 year old female with pmhx of metastatic colon cancer, HTN and COPD who presents the ER with abdominal pain. She says she had diarrhea and vomiting before the admission. She was admitted for treatment of mesenteric ischemia. She reports good pain relief with IV dilaudid client specialist in the past. - Past Medical History Cardio/Vascular: Yes: HTN Pulmonary: Yes: COPD Gastrointestinal: Yes: Cancer, Other (colon cancer) - Alcohol/Substance Use Hx Alcohol Use: No - Smoking History Smoking history: Former smoker Have you smoked in the past 12 months: No Home Medications - Allergies Allergies/Adverse Reactions: Allergies Allergy/AdvReac Type Severity Reaction Status Date / Time amitriptyline Allergy Verified 10/26/16 06:55 iv contrast Allergy Uncoded 10/26/16 06:55 - Home Medications Home Medications: Ambulatory Orders Acetaminophen [Tylenol] 650 mg PO QID PRN 10/26/16 Albuterol Sulfate Inhaler - [Ventolin Hfa Inhaler -] 1 - 2 inh PO Q4H 10/26/16 Docusate Sodium [Colace -] 100 mg PO BID 10/26/16 FENTANYL 75mcg PATCH [DURAGESIC 75mcg PATCH -] 1 each TD Q72H 10/26/16 Gabapentin [Neurontin -] 300 mg PO Q8H 10/26/16 Hydromorphone [Dilaudid -] 4 mg PO Q6H 10/26/16 Lorazepam 0.5 mg PO ASDIR 10/26/16 Pantoprazole Sodium [Protonix] 40 mg PO DAILY 10/26/16 Polyethylene Glycol 3350 [Miralax (For Daily Use) -] 17 gm PO DAILY 10/26/16 Sennosides [Senna] 8.6 mg PO HS 10/26/16 Tizanidine HCl [Zanaflex] 2 mg PO ASDIR 10/26/16 Physical Exam Vital Signs: Vital Signs Temperature 98 F 10/29/16 06:21 Pulse Rate 94 H 10/29/16 09:08 Respiratory Rate 18 10/29/16 09:08 Blood Pressure 143/76 10/29/16 09:08 O2 Sat by Pulse Oximetry (%) 97 10/28/16 21:00 Gastrointestinal: Yes: Tenderness Labs: CBC, BMP 10/28/16 06:30 10/28/16 06:30 Assessment/Plan Diffuse body pain secondary to metastatic colon cancer 1. 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 Will follow up prn 3. Please stop dilaudid ivpb once client specialist started- nurse aware
--- NOTE | 2016-10-29 19:09 | PN ---
GI Progress Note Subjective: still with abdominal pain tolerating minimal liquids, patient only wants supportive care , children including Juan,Lola,and Lisa aware of their mothers decision. - Objective Vital Signs: Vital Signs Temperature 98 F 10/29/16 06:21 Pulse Rate 94 H 10/29/16 09:08 Respiratory Rate 18 10/29/16 09:08 Blood Pressure 143/76 10/29/16 09:08 O2 Sat by Pulse Oximetry (%) 97 10/28/16 21:00 Constitutional: Well Nourished Eyes: Yes: Conjunctiva Clear HENT: Yes: Atraumatic Neck: Yes: Supple Cardiovascular: Yes: Regular Rate and Rhythm ...Palpate: Yes: Soft, Tenderness. No: Firm/Rigid, Guarding, Hepatomegaly, Splenomegaly, Tenderness, Rebound Labs: CBC, BMP 10/28/16 06:30 10/28/16 06:30 INR, PTT INR 1.63 (0.82-1.09) H 10/26/16 07:15 Problem List - Problems (1) Acute mesenteric ischemia Code(s): K55.059 - ACUTE ISCHEMIA OF INTESTINE, PART AND EXTENT UNSPECIFIED (2) Metastatic colorectal cancer Assessment/Plan: R> continue supportive care Code(s): C78.5 - SECONDARY MALIGNANT NEOPLASM OF LARGE INTESTINE AND RECTUM
[2016-10-29] MEDS: HYDROmorphone *PCA* 10MG/50ML DISP.SYRIN PCA SCH (21:22)
--- NOTE | 2016-10-29 21:46 | CONSULT ---
Consult - text type - Consultation Consultation Note: NEUROLOGY CONSULTATION is greatly appreciated: This 61 yo RH woman with h/o COPD, GERD and colonic CA has known mets to the liver and LS spine (L1). Admitted with abdominal pain and ascites. Received RT and chemoRx until just before admission. On fentanyl (75 ug) and dilaudid (4 mg q6 hrs) for pain but now preparing to use [employer]. Treated for infection with ceftriaxone but developed C. diff requiring metronidazole (500 q 8hrs). Over the last few days developed increasing confusion and myoclonic jerks. Labs sig for hypocalcemia (with hypoalbuminemia), Inc Alk Phos and LFT's and climbing creatinine. CT of head (reviewed): Normal. WBC normalizing now and myoclonus has improved. Exam: Thin. Jaundiced. Neck supple. Neuro: Awake and cooperative. Mood swings. Mild OMS Fluent speach. CN II-XII: Normal without nystagmus Motor: Moves all fours. Normal strength. No tremor or cogwheeling. Hyporeflexia. Toes downgoing. -Myoclonus -Asterixis. Coord: No FTN Dystaxia Sensory: Decreased vibration in the feet. IMP: Non-focal exam with mild OMS. Myoclonus was due to multifactorial toxic-metabolic encephalopathy especially due to infection, narcotics and antibiotics (particularly metronidazole). Improvement in myoclonus supports successful Rx of infection. SUGGEST: Check ammonia levels and Mg++. Since patient is confused, would follow carefully on [employer]. If encephalopathy worsens would decrease flagyl dose to 250 mg q 8 hrs. Thank you very much, John Mahoney MD
[2016-10-30] MEDS: ALBUTEROL SO4 0.083% IH SOL 2.5 MG/3 ML VIAL.NEB. NEB PRN ×2 (01:00→07:34)
[2016-10-30] MEDS: METRONIDAZOLE 500 MG PREMIXED 100 ML IVPB SCH ×2 (03:50→10:45)
[2016-10-30] MEDS: DEXTROSE 5%-NORMAL SALINE 1,000 ML IV SCH ×2 (03:59→14:03)
[2016-10-30] MEDS: HYDROmorphone *PCA* 10MG/50ML DISP.SYRIN PCA SCH ×5 (07:23→21:20)
--- NOTE | 2016-10-30 09:20 | PN ---
Progress Note (short form) - Note Progress Note: awake and alert continues with severe back pain continued abdominal pain no diarrhea now on [employer] pump refused labs today now DNR/DNI Vital Signs Period Temp Pulse Resp BP Sys/Erickson Pulse Ox Last 24 Hr 98.2 F-98.3 F 94-103 20-20 125-138/57-106 97 cor-rrr lungs clear abd-soft, +BS, diffuse discomfort to palpation ext no edema CBC, BMP 10/28/16 06:30 10/28/16 06:30 echo- limited study a/p sepsis-group b strep (urine and blood-), rocephin/flagyl- day #4 antibiotics repeat blood cultures negative colitis by ct scan-cdiff antigen positive, toxin negative- i donot think she has cdiff but would continue flagyl for colitis mesenteric ischemia metastatic colon cancer-mets to liver, lung, bone (back s/p RT) pain management continues Problem List - Problems (1) Bacteremia due to group B Streptococcus Code(s): R78.81 - BACTEREMIA (2) Acute ischemic colitis Code(s): K55.039 - ACUTE ISCHEMIA OF LARGE INTESTINE, EXTENT UNSPECIFIED (3) Metastatic colorectal cancer Code(s): C78.5 - SECONDARY MALIGNANT NEOPLASM OF LARGE INTESTINE AND RECTUM
[2016-10-30] MEDS: LORazepam 0.5 MG TABLET PO PRN (10:30)
[2016-10-30] MEDS: cefTRIAXone 2 GM/100 ML BAG (PRE-DOCKED) IVPB SCH (10:45)
[2016-10-30] MEDS: PANTOPRAZOLE SODIUM 40 MG/100 ML PRE-DOCKED IVPB SCH (10:45)
[2016-10-30] MEDS: GABAPENTIN 300 MG CAPSULE (FP) PO SCH (11:25)
[2016-10-30] MEDS: HEPARIN NA (PORCINE) 5,000 UNITS/ML 1ML VIAL SQ SCH (11:26)
--- NOTE | 2016-10-30 13:39 | PN ---
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 APPEARS TO HAVE ADEQUATE PAIN RELIEF VSS ICTERIC SCATTERED CRACKLES S1S2 SOFT 1+EDEMA LABS/MEDS/NOTES/IMAGING REVIEWED (1) Colitis Code(s): K52.9 - NONINFECTIVE GASTROENTERITIS AND COLITIS, UNSPECIFIED (2) Colon cancer Code(s): C18.9 - MALIGNANT NEOPLASM OF COLON, UNSPECIFIED Qualifiers: Colon location: unspecified part of colon Qualified Code(s): C18.9 - Malignant neoplasm of colon, unspecified (3) Acute ischemic colitis Code(s): K55.039 - ACUTE ISCHEMIA OF LARGE INTESTINE, EXTENT UNSPECIFIED 4 acute kidney injury Assessment/Plan BD TX PRN SUPER[employer]OR [employer]SEMBL[employer] to continue PO as tolerated IVF ABX per ID SQ Hep R ESDRAS LAMB
--- NOTE | 2016-10-30 14:48 | PN ---
Progress Note (short form) - Note Progress Note: MEDICAL INFORMED BY NURSE ON FLOOR THAT PATIENT AND FAMILY REQUEST HOSPICE AND COMFORT MEASURES ONLY. ALL FORMS OF TREATMENT UNRELATED TO PAIN RELIEF IS TO BE DISCONTINUED Radha DEWITT MD
--- NOTE | 2016-10-30 14:49 | PN ---
Progress Note, Physician History of Present Illness: Pt seen and examined at bedside. She is awake and appears comfortable. - Current Medication List Current Medications: Active Medications Acetaminophen (Tylenol Suppository -) 650 mg [place] Q6H PRN PRN Reason: FEVER OR PAIN Albuterol Sulfate (Ventolin Hfa Inhaler -) 1 puff IH Q4H PRN PRN Reason: SHORT OF BREATH/WHEEZING Last Admin: 10/29/16 09:06 Dose: 1 puff Albuterol Sulfate (Ventolin 0.083% Nebulizer Soln -) 1 amp NEB Q4H PRN PRN Reason: SHORT OF BREATH/WHEEZING Last Admin: 10/30/16 07:34 Dose: 1 amp Ceftriaxone Sodium (Rocephin 2gm Ivpb (Pre-Docked)) 2 gm IVPB DAILY LAMBERTO PRN Reason: Protocol Last Admin: 10/30/16 10:45 Dose: 2 gm Fentanyl (Duragesic 75mcg Patch -) 1 patch TD Q72H LAMBERTO Last Admin: 10/29/16 17:39 Dose: 1 patch Gabapentin (Neurontin -) 300 mg PO BID LAMBERTO Last Admin: 10/30/16 11:25 Dose: 300 mg Heparin Sodium (Porcine) (Heparin -) 5,000 unit SQ BID LAMBERTO Last Admin: 10/30/16 11:26 Dose: 5,000 unit Hydromorphone HCl (Dilaudid Burglar Alarm Inspector -) 10 mg MUSHROOM PICKER MUSHROOM PICKER LAMBERTO PRN Reason: Protocol Stop: 11/05/16 19:00 Last Admin: 10/30/16 14:40 Dose: 10 mg Metronidazole (Flagyl 500mg Premixed Ivpb -) 100 mls @ 100 mls/hr IVPB Q8H-IV LAMBERTO Last Admin: 10/30/16 10:45 Dose: 100 mls/hr Dextrose/Sodium Chloride (D5-Ns -) 1,000 mls @ 125 mls/hr IV ASDIR LAMBERTO Last Admin: 10/30/16 14:03 Dose: Not Given Lorazepam (Ativan -) 0.5 mg PO TID PRN PRN Reason: ANXIETY Last Admin: 10/30/16 10:30 Dose: 0.5 mg Miscellaneous (Duragesic Patch Waste) 1 each MC PRN PRN PRN Reason: PAIN Last Admin: 10/26/16 18:41 Dose: 1 each Ondansetron HCl (Zofran Injection) 4 mg IVPB Q6H PRN PRN Reason: NAUSEA Pantoprazole Sodium (Protonix 40mg Ivpb (Pre-Docked)) 40 mg IVPB DAILY LAMBERTO Last Admin: 10/30/16 10:45 Dose: 40 mg - Objective Vital Signs: Vital Signs Temperature 98.3 F 10/30/16 06:58 Pulse Rate 92 H 10/30/16 11:26 Respiratory Rate 18 10/30/16 11:26 Blood Pressure 139/77 10/30/16 11:26 O2 Sat by Pulse Oximetry (%) 97 10/29/16 21:00 Constitutional: Yes: Calm Eyes: Yes: Conjunctiva Clear HENT: Yes: Atraumatic Cardiovascular: Yes: S1, S2 Respiratory: Yes: CTA Bilaterally Gastrointestinal: Yes: Tenderness Genitourinary: Yes: WNL Musculoskeletal: Yes: WNL Edema: No Neurological: Yes: Oriented Labs: CBC, BMP 10/28/16 06:30 10/28/16 06:30 INR, PTT INR 1.63 (0.82-1.09) H 10/26/16 07:15 Problem List - Problems (1) Acute ischemic colitis Code(s): K55.039 - ACUTE ISCHEMIA OF LARGE INTESTINE, EXTENT UNSPECIFIED (2) Acute mesenteric ischemia Code(s): K55.059 - ACUTE ISCHEMIA OF INTESTINE, PART AND EXTENT UNSPECIFIED (3) Colitis Code(s): K52.9 - NONINFECTIVE GASTROENTERITIS AND COLITIS, UNSPECIFIED (4) Colon cancer Code(s): C18.9 - MALIGNANT NEOPLASM OF COLON, UNSPECIFIED Qualifiers: Colon location: unspecified part of colon Qualified Code(s): C18.9 - Malignant neoplasm of colon, unspecified (5) ALEJANDRA (acute kidney injury) Code(s): N17.9 - ACUTE KIDNEY FAILURE, UNSPECIFIED Assessment/Plan Current Medications Generic Name Dose Route Start Last Admin Trade Name Freq PRN Reason Stop Dose Admin Acetaminophen 650 mg 10/26/16 17:40 Tylenol Suppository - RI Q6H PRN FEVER OR PAIN Albuterol Sulfate 1 puff 10/27/16 05:29 10/29/16 09:06 Ventolin Hfa Inhaler - IH 1 puff Q4H PRN Administration SHORT OF BREATH/WHEEZING Albuterol Sulfate 1 amp 10/29/16 09:35 10/30/16 07:34 Ventolin 0.083% Nebulizer Soln - NEB 1 amp Q4H PRN Administration SHORT OF BREATH/WHEEZING Ceftriaxone Sodium 2 gm 10/28/16 14:00 10/30/16 10:45 Rocephin 2gm Ivpb (Pre-Docked) IVPB 2 gm DAILY LAMBERTO Administration Protocol Fentanyl 1 patch 10/26/16 17:45 10/29/16 17:39 Duragesic 75mcg Patch - TD 1 patch Q72H LAMBERTO Administration Gabapentin 300 mg 10/26/16 22:00 10/30/16 11:25 Neurontin - PO 300 mg BID LAMBERTO Administration Heparin Sodium (Porcine) 5,000 unit 10/26/16 22:00 10/30/16 11:26 Heparin - SQ 5,000 unit BID LAMBERTO Administration Hydromorphone HCl 10 mg 10/29/16 19:00 10/30/16 14:40 Dilaudid Burglar Alarm Inspector - MUSHROOM PICKER 11/05/16 19:00 10 mg MUSHROOM PICKER LAMBERTO Administration Protocol Metronidazole 100 mls @ 100 mls/hr 10/26/16 14:00 10/30/16 10:45 Flagyl 500mg Premixed Ivpb - IVPB 100 mls/hr Q8H-IV LAMBERTO Administration Dextrose/Sodium Chloride 1,000 mls @ 125 mls/hr 10/29/16 13:27 10/30/16 14:03 D5-Ns - IV Not Given ASDIR LAMBERTO Lorazepam 0.5 mg 10/29/16 13:16 10/30/16 10:30 Ativan - PO 0.5 mg TID PRN Administration ANXIETY Miscellaneous 1 each 10/26/16 17:40 10/26/16 18:41 Duragesic Patch Waste MC 1 each PRN PRN Administration PAIN Ondansetron HCl 4 mg 10/26/16 17:40 Zofran Injection IVPB Q6H PRN NAUSEA Pantoprazole Sodium 40 mg 10/28/16 09:51 10/30/16 10:45 Protonix 40mg Ivpb (Pre-Docked) IVPB 40 mg DAILY LAMBERTO Administration Impression 1. ALEJANDRA 2. colon cancer with mets 3. htn 4. messenteric ischemia 5. colitis Plan - no new labs, family do not want blood draws - family will meet with palliative care and want hospice care - discussed care with family - FENa is about 0.47% which is consistent with pre-renal disease - will follow PRN - discussed with medical team Dr Dugan
[2016-10-31] MEDS: SODIUM CHLORIDE 1,000 ML IV SCH (03:04)
[2016-10-31] MEDS: LORazepam 0.5 MG TABLET PO PRN (06:15)
[2016-10-31] MEDS: ALBUTEROL SO4 0.083% IH SOL 2.5 MG/3 ML VIAL.NEB. NEB PRN (06:22)
--- NOTE | 2016-10-31 09:03 | PN ---
Progress Note, Physician History of Present Illness: C/O PAIN - Current Medication List Current Medications: Active Medications Acetaminophen (Tylenol Suppository -) 650 mg [place] Q6H PRN PRN Reason: FEVER OR PAIN Acetaminophen (Ofirmev Injection -) 1,000 mg IVPB BID LAMBERTO Stop: 11/01/16 22:01 Albuterol Sulfate (Ventolin Hfa Inhaler -) 1 puff IH Q4H PRN PRN Reason: SHORT OF BREATH/WHEEZING Last Admin: 10/29/16 09:06 Dose: 1 puff Albuterol Sulfate (Ventolin 0.083% Nebulizer Soln -) 1 amp NEB Q4H PRN PRN Reason: SHORT OF BREATH/WHEEZING Last Admin: 10/31/16 06:22 Dose: 1 amp Fentanyl (Duragesic 75mcg Patch -) 1 patch TD Q72H LAMBERTO Last Admin: 10/29/16 17:39 Dose: 1 patch Fentanyl (Duragesic 100mcg Patch -) 1 patch TD Q72H LAMBERTO Stop: 11/07/16 09:01 Hydromorphone HCl (Dilaudid Nuclear Fuels Research Engineer -) 10 mg OPTICAL MECHANIC APPRENTICE OPTICAL MECHANIC APPRENTICE LAMBERTO PRN Reason: Protocol Stop: 11/05/16 19:00 Last Admin: 10/30/16 21:20 Dose: 10 mg Dextrose/Sodium Chloride (D5-Ns -) 1,000 mls @ 125 mls/hr IV ASDIR LAMBERTO Last Admin: 10/30/16 14:03 Dose: Not Given Lorazepam (Ativan -) 0.5 mg PO TID PRN PRN Reason: ANXIETY Last Admin: 10/31/16 06:15 Dose: 0.5 mg Miscellaneous (Duragesic Patch Waste) 1 each MC PRN PRN PRN Reason: PAIN Last Admin: 10/26/16 18:41 Dose: 1 each Miscellaneous (Duragesic Patch Waste) 1 each MC PRN PRN PRN Reason: PAIN Ondansetron HCl (Zofran Injection) 4 mg IVPB Q6H PRN PRN Reason: NAUSEA - Objective Vital Signs: Vital Signs Temperature 97.7 F 10/31/16 08:26 Pulse Rate 108 H 10/31/16 08:26 Respiratory Rate 16 10/31/16 08:26 Blood Pressure 129/76 10/31/16 08:26 O2 Sat by Pulse Oximetry (%) 100 10/30/16 21:00 Cardiovascular: Yes: Regular Rate and Rhythm Respiratory: Yes: Regular, Diminished Gastrointestinal: Yes: Normal Bowel Sounds, Soft, Tenderness Labs: CBC, BMP 10/28/16 06:30 10/28/16 06:30 INR, PTT INR 1.63 (0.82-1.09) H 10/26/16 07:15 Problem List - Problems (1) Metastatic colorectal cancer Assessment/Plan: COMFORT MEASURES PAIN CONTROL Code(s): C78.5 - SECONDARY MALIGNANT NEOPLASM OF LARGE INTESTINE AND RECTUM (2) ALEJANDRA (acute kidney injury) Assessment/Plan: MONITOR Laboratory Tests 10/26/16 10/27/16 10/28/16 07:15 06:15 06:30 BUN 16 19 H Creatinine 0.8 1.5 H D 1.6 H Code(s): N17.9 - ACUTE KIDNEY FAILURE, UNSPECIFIED
[2016-10-31] MEDS ORDERED: ACETAMINOPHEN 1000 MG/100 ML VIAL (NON FORMULARY) IVPB SCH (10:00)
[2016-10-31] MEDS: fentaNYL 100mcg/hr PATCH.TD72 TD SCH (11:52)
[2016-10-31] MEDS: HYDROmorphone *PCA* 10MG/50ML DISP.SYRIN PCA SCH ×2 (12:53→19:04)
[2016-10-31] MEDS: FENTANYL PATCH WASTE TD PRN (14:02)
[2016-10-31] MEDS: DEXTROSE 5%-NORMAL SALINE 1,000 ML IV SCH (15:26)
[2016-11-01] MEDS: ALBUTEROL SO4 0.083% IH SOL 2.5 MG/3 ML VIAL.NEB. NEB PRN (03:37)
--- NOTE | 2016-11-01 07:14 | PN ---
Progress Note, Physician History of Present Illness: C/O PAIN - Current Medication List Current Medications: Active Medications Acetaminophen (Tylenol Suppository -) 650 mg [place] Q6H PRN PRN Reason: FEVER OR PAIN Albuterol Sulfate (Ventolin Hfa Inhaler -) 1 puff IH Q4H PRN PRN Reason: SHORT OF BREATH/WHEEZING Last Admin: 10/29/16 09:06 Dose: 1 puff Albuterol Sulfate (Ventolin 0.083% Nebulizer Soln -) 1 amp NEB Q4H PRN PRN Reason: SHORT OF BREATH/WHEEZING Last Admin: 11/01/16 03:37 Dose: 1 amp Fentanyl (Duragesic 100mcg Patch -) 1 patch TD Q72H LAMBERTO Stop: 11/07/16 10:44 Last Admin: 10/31/16 11:52 Dose: 1 patch Hydromorphone HCl (Dilaudid Client Server Programmer -) 10 mg FLOOR LAYER FLOOR LAYER LAMBERTO PRN Reason: Protocol Stop: 11/05/16 19:00 Last Admin: 10/31/16 19:04 Dose: 10 mg Sodium Chloride (Normal Saline -) 1,000 mls @ 21 mls/hr IV ASDIR LAMBERTO Last Admin: 10/31/16 03:04 Dose: 21 mls/hr Lorazepam (Ativan -) 0.5 mg PO TID PRN PRN Reason: ANXIETY Last Admin: 10/31/16 06:15 Dose: 0.5 mg Miscellaneous (Duragesic Patch Waste) 1 each TD PRN PRN PRN Reason: PAIN Last Admin: 10/31/16 14:02 Dose: 1 each Ondansetron HCl (Zofran Injection) 4 mg IVPB Q6H PRN PRN Reason: NAUSEA - Objective Vital Signs: Vital Signs Temperature 97.9 F 10/31/16 14:19 Pulse Rate 111 H 10/31/16 14:19 Respiratory Rate 18 10/31/16 21:00 Blood Pressure 134/79 10/31/16 14:19 O2 Sat by Pulse Oximetry (%) 97 10/31/16 21:00 Cardiovascular: Yes: S1, S2 Respiratory: Yes: Diminished Gastrointestinal: Yes: Normal Bowel Sounds, Soft Labs: CBC, BMP 10/28/16 06:30 10/28/16 06:30 INR, PTT INR 1.63 (0.82-1.09) H 10/26/16 07:15 Problem List - Problems (1) Metastatic colorectal cancer Assessment/Plan: COMFORT MEASURES PAIN CONTROL Code(s): C78.5 - SECONDARY MALIGNANT NEOPLASM OF LARGE INTESTINE AND RECTUM (2) ALEJANDRA (acute kidney injury) Assessment/Plan: MONITOR Laboratory Tests 10/26/16 10/27/16 10/28/16 07:15 06:15 06:30 BUN 16 19 H Creatinine 0.8 1.5 H D 1.6 H Code(s): N17.9 - ACUTE KIDNEY FAILURE, UNSPECIFIED (3) Anemia Assessment/Plan: monitor labs Code(s): D64.9 - ANEMIA, UNSPECIFIED (4) Abdominal pain Assessment/Plan: due to above on pain meds comfort care Code(s): R10.9 - UNSPECIFIED ABDOMINAL PAIN
[2016-11-01] MEDS: LORazepam 0.5 MG TABLET PO PRN (09:31)
[2016-11-01] MEDS: HYDROmorphone *PCA* 10MG/50ML DISP.SYRIN PCA SCH ×3 (13:52→23:50)
[2016-11-01] MEDS: SODIUM CHLORIDE 1,000 ML IV SCH (15:50)
[2016-11-01] MEDS ORDERED: LORazepam 0.5 MG TABLET PO PRN (19:10)
[2016-11-02] MEDS: HYDROmorphone *PCA* 10MG/50ML DISP.SYRIN PCA SCH (11:18)
[2016-11-02] MEDS: SODIUM CHLORIDE 1,000 ML IV SCH ×2 (11:20→15:57)
[2016-11-02] MEDS: LORAZEPAM CARPU-JECT 2 MG/ML DISP.SYRIN IVPUSH PRN (12:10)
[2016-11-02] MEDS: MORPHINE 100 MG in SODIUM CHLORIDE 98 ML IVPB SCH (18:21)
--- NOTE | 2016-11-02 21:21 | PN ---
Progress Note, Physician Chief Complaint: ASLEEP/COMFORTABLE FAMILY BEDSIDE - Current Medication List Current Medications: Active Medications Acetaminophen (Tylenol Suppository -) 650 mg [place] Q6H PRN PRN Reason: FEVER OR PAIN Albuterol Sulfate (Ventolin Hfa Inhaler -) 1 puff IH Q4H PRN PRN Reason: SHORT OF BREATH/WHEEZING Last Admin: 10/29/16 09:06 Dose: 1 puff Albuterol Sulfate (Ventolin 0.083% Nebulizer Soln -) 1 amp NEB Q4H PRN PRN Reason: SHORT OF BREATH/WHEEZING Last Admin: 11/01/16 03:37 Dose: 1 amp Fentanyl (Duragesic 100mcg Patch -) 1 patch TD Q72H LAMBERTO Stop: 11/07/16 10:44 Last Admin: 10/31/16 11:52 Dose: 1 patch Sodium Chloride (Normal Saline -) 1,000 mls @ 21 mls/hr IV ASDIR LAMBERTO Last Admin: 11/02/16 15:57 Dose: Not Given Morphine Sulfate 100 mg/ (Sodium Chloride) 100 mls @ 4 mls/hr IVPB TITR LAMBERTO; 4 MG/HR PRN Reason: Protocol Last Admin: 11/02/16 18:21 Dose: 4 mls/hr Lorazepam (Ativan Injection -) 1 mg IVPUSH Q8H PRN PRN Reason: ANXIETY Last Admin: 11/02/16 12:10 Dose: 1 mg Miscellaneous (Duragesic Patch Waste) 1 each TD PRN PRN PRN Reason: PAIN Last Admin: 10/31/16 14:02 Dose: 1 each Ondansetron HCl (Zofran Injection) 4 mg IVPB Q6H PRN PRN Reason: NAUSEA - Objective Vital Signs: Vital Signs Temperature 97.2 F L 11/02/16 06:00 Pulse Rate 92 H 11/02/16 13:18 Respiratory Rate 14 11/02/16 15:18 Blood Pressure 108/62 11/02/16 15:18 O2 Sat by Pulse Oximetry (%) 97 11/02/16 09:00 Constitutional: Yes: No Distress Eyes: Yes: WNL HENT: Yes: WNL Neck: Yes: WNL Cardiovascular: Yes: WNL Respiratory: Yes: On Nasal O2, Other Gastrointestinal: Yes: Other Musculoskeletal: Yes: Muscle Weakness Extremities: Yes: Other Edema: No Integumentary: Yes: WNL Wound/Incision: Yes: Clean/Dry Neurological: Yes: Pre-Existing Deficit, Other ...Motor Strength: LLE, RLE Psychiatric: Yes: Other Labs: CBC, BMP 10/28/16 06:30 10/28/16 06:30 INR, PTT INR 1.63 (0.82-1.09) H 10/26/16 07:15 Problem List - Problems (1) Colitis Code(s): K52.9 - NONINFECTIVE GASTROENTERITIS AND COLITIS, UNSPECIFIED (2) Colon cancer Code(s): C18.9 - MALIGNANT NEOPLASM OF COLON, UNSPECIFIED Qualifiers: Colon location: unspecified part of colon Qualified Code(s): C18.9 - Malignant neoplasm of colon, unspecified (3) Acute ischemic colitis Code(s): K55.039 - ACUTE ISCHEMIA OF LARGE INTESTINE, EXTENT UNSPECIFIED Assessment/Plan ALL FORMS OF TREATMENT HAS BEEN STOPPED EXCEPT FOR PAIN RELIEF 02 SUPPORT WITH 02 NC/MASK ONLY DILAUDID STOPPED MORPHINE DRIP 4MG/HR STARTED FAMILY AWARE AND SUPPORTIVE
[2016-11-03] MEDS: MORPHINE 100 MG in SODIUM CHLORIDE 98 ML IVPB SCH ×3 (06:53→18:35)
[2016-11-03] MEDS: SODIUM CHLORIDE 1,000 ML IV SCH ×2 (07:00→15:02)
[2016-11-03] MEDS: LORAZEPAM CARPU-JECT 2 MG/ML DISP.SYRIN IVPUSH PRN (14:49)
[2016-11-03] MEDS: fentaNYL 100mcg/hr PATCH.TD72 TD SCH (14:52)
[2016-11-03] MEDS: FENTANYL PATCH WASTE TD PRN (15:20)
--- NOTE | 2016-11-03 19:43 | PN ---
Progress Note, Physician Chief Complaint: ASLEEP/COMFORTABLE SON BEDSIDE - Current Medication List Current Medications: Active Medications Acetaminophen (Tylenol Suppository -) [address] Q6H PRN PRN Reason: FEVER OR PAIN Albuterol Sulfate (Ventolin Hfa Inhaler -) 1 puff IH Q4H PRN PRN Reason: SHORT OF BREATH/WHEEZING Last Admin: 10/29/16 09:06 Dose: 1 puff Fentanyl (Duragesic 100mcg Patch -) 1 patch TD Q72H LAMBERTO Stop: 11/07/16 10:44 Last Admin: 11/03/16 14:52 Dose: 1 patch Sodium Chloride (Normal Saline -) 1,000 mls @ 21 mls/hr IV ASDIR LAMBERTO Last Admin: 11/03/16 15:02 Dose: Not Given Morphine Sulfate 100 mg/ (Sodium Chloride) 100 mls @ 4 mls/hr IVPB TITR LAMBERTO; 4 MG/HR PRN Reason: Protocol Last Admin: 11/03/16 18:35 Dose: Not Given Lorazepam (Ativan Injection -) 1 mg IVPUSH Q8H PRN PRN Reason: ANXIETY Last Admin: 11/03/16 14:49 Dose: 1 mg Miscellaneous (Duragesic Patch Waste) 1 each TD PRN PRN PRN Reason: PAIN Last Admin: 11/03/16 15:20 Dose: 1 each Ondansetron HCl (Zofran Injection) 4 mg IVPB Q6H PRN PRN Reason: NAUSEA - Objective Vital Signs: Vital Signs Temperature 97.3 F L 11/03/16 17:14 Pulse Rate 103 H 11/03/16 17:14 Respiratory Rate 16 11/03/16 17:14 Blood Pressure 108/66 11/03/16 17:14 O2 Sat by Pulse Oximetry (%) 97 11/03/16 09:00 Constitutional: Yes: No Distress Eyes: Yes: Other HENT: Yes: WNL Neck: Yes: WNL Cardiovascular: Yes: Pulse Irregular Respiratory: Yes: Diminished, Poor Air Entry Gastrointestinal: Yes: Distention, Tenderness Genitourinary: Yes: Incontinence Musculoskeletal: Yes: Muscle Weakness Extremities: Yes: Other Edema: Yes Peripheral Pulses WNL: Yes Integumentary: Yes: Erythema Wound/Incision: Yes: Dressing Dry and Intact Neurological: Yes: Other Labs: CBC, BMP 10/28/16 06:30 10/28/16 06:30 INR, PTT INR 1.63 (0.82-1.09) H 10/26/16 07:15 Problem List - Problems (1) Colitis Code(s): K52.9 - NONINFECTIVE GASTROENTERITIS AND COLITIS, UNSPECIFIED (2) Colon cancer Code(s): C18.9 - MALIGNANT NEOPLASM OF COLON, UNSPECIFIED Qualifiers: Colon location: unspecified part of colon Qualified Code(s): C18.9 - Malignant neoplasm of colon, unspecified (3) Acute ischemic colitis Code(s): K55.039 - ACUTE ISCHEMIA OF LARGE INTESTINE, EXTENT UNSPECIFIED Assessment/Plan IN HOSPITAL HOSPICE IV MORPHINE AND ATIVAN NO LABS COMFORT CARE DISCUSSED WITH FAMILY, ALL AWARE AND ACCEPTING HOSPICE CARE FOR THEIR MOTHER
[2016-11-03] MEDS: HYDROmorphone *PCA* 10MG/50ML DISP.SYRIN PCA SCH (19:49)
[2016-11-04] MEDS: MORPHINE 100 MG in SODIUM CHLORIDE 98 ML IVPB SCH ×2 (01:40→23:18)
[2016-11-04] MEDS: LORAZEPAM CARPU-JECT 2 MG/ML DISP.SYRIN IVPUSH PRN (11:29)
--- NOTE | 2016-11-04 19:06 | PN ---
Progress Note (short form) - Note Progress Note: NEUROLOGY FOLLOW-UP: Events reviewed. Patient examined and discussed with son and nephew at the bedside. Last conversed on Wednesday. Has not self-administered ENVIRONMENTAL TECH x 2 days. Poorly responsive. On Fentanyl 100 ug q 72 hrs. Lethargic. Stertorous respirations Opens eyes and elevates both arms and hands, symmetrically, when stimulated. Grasps weakly on command. Non-focal exam. Lethargic due to appropriate pain meds and probable hypoventilation. Moribund. Continue fentanyl and gentle hydration. D/C ENVIRONMENTAL TECH. Family aware. Questions addressed. Thank you very much, John Mahoney MD
--- NOTE | 2016-11-04 21:57 | PN ---
Progress Note, Physician Chief Complaint: FAMILY BEDSIDE, DISCUSSED AND REVIEWED PLAN OUTLINED ON MY ORDERS FOR 30 MINUTES. FAMILY ALSO NEEDS FMLA FORMS COMPLETED I TOLD THEM TO COME BY MY OFFICE SO I CAN CORRECTLY SPEND TIME WITH THEM TO COMPLETE. - Current Medication List Current Medications: Active Medications Acetaminophen (Tylenol Suppository -) 650 mg [place] Q6H PRN PRN Reason: FEVER OR PAIN Albuterol Sulfate (Ventolin Hfa Inhaler -) 1 puff IH Q4H PRN PRN Reason: SHORT OF BREATH/WHEEZING Last Admin: 10/29/16 09:06 Dose: 1 puff Fentanyl (Duragesic 100mcg Patch -) 1 patch TD Q72H LAMBERTO Stop: 11/07/16 10:44 Last Admin: 11/03/16 14:52 Dose: 1 patch Sodium Chloride (Normal Saline -) 1,000 mls @ 21 mls/hr IV ASDIR LAMBERTO Last Admin: 11/03/16 15:02 Dose: Not Given Morphine Sulfate 100 mg/ (Sodium Chloride) 100 mls @ 4 mls/hr IVPB TITR LAMBERTO; 4 MG/HR PRN Reason: Protocol Last Admin: 11/04/16 01:40 Dose: 10 mls/hr Lorazepam (Ativan Injection -) 1 mg IVPUSH Q8H PRN PRN Reason: ANXIETY Last Admin: 11/04/16 11:29 Dose: 1 mg Miscellaneous (Duragesic Patch Waste) 1 each TD PRN PRN PRN Reason: PAIN Last Admin: 11/03/16 15:20 Dose: 1 each Ondansetron HCl (Zofran Injection) 4 mg IVPB Q6H PRN PRN Reason: NAUSEA - Objective Vital Signs: Vital Signs Temperature 96.7 F L 11/04/16 17:01 Pulse Rate 101 H 11/04/16 17:01 Respiratory Rate 16 11/04/16 17:01 Blood Pressure 116/50 11/04/16 17:01 O2 Sat by Pulse Oximetry (%) 96 11/04/16 09:00 Constitutional: Yes: Severe Distress Eyes: Yes: Other HENT: Yes: Other Neck: Yes: Other Cardiovascular: Yes: Regular Rate and Rhythm, Other Respiratory: Yes: SOB Gastrointestinal: Yes: WNL Musculoskeletal: Yes: Muscle Weakness Extremities: Yes: Other Edema: No Integumentary: Yes: Rash Wound/Incision: Yes: Other Neurological: Yes: Pre-Existing Deficit, Unresponsive, Unsteady Gait, Weakness, Other ...Motor Strength: LLE, RLE Psychiatric: Yes: Agitated, Other Labs: CBC, BMP 10/28/16 06:30 10/28/16 06:30 INR, PTT INR 1.63 (0.82-1.09) H 10/26/16 07:15 Problem List - Problems (1) Colitis Code(s): K52.9 - NONINFECTIVE GASTROENTERITIS AND COLITIS, UNSPECIFIED (2) Colon cancer Code(s): C18.9 - MALIGNANT NEOPLASM OF COLON, UNSPECIFIED Qualifiers: Colon location: unspecified part of colon Qualified Code(s): C18.9 - Malignant neoplasm of colon, unspecified (3) Acute ischemic colitis Code(s): K55.039 - ACUTE ISCHEMIA OF LARGE INTESTINE, EXTENT UNSPECIFIED Assessment/Plan IN HOSPITAL HOSPICE IV MORPHINE AND ATIVAN NO LABS COMFORT CARE DISCUSSED WITH FAMILY, ALL AWARE AND ACCEPTING HOSPICE CARE FOR THEIR MOTHER
[2016-11-05] MEDS: SODIUM CHLORIDE 1,000 ML IV SCH (10:02)
[2016-11-05] MEDS: MORPHINE 100 MG in SODIUM CHLORIDE 98 ML IVPB SCH ×3 (10:03→22:16)
--- NOTE | 2016-11-05 13:22 | PN ---
Progress Note (short form) - Note Progress Note: FAMILY ASKING FOR PAPERWORK TO BE COMPLETED FOR DAYS OFF OF WORK/SCHOOL I INVITED THEM TO MY PRIVATE OFFICE SO I CAN USE MY OFFIC ELETTERHEAD AND COMPLETE WITH FULL DETAILS. PATIENT MINIMALLY RESPONSIVE, COMFORTABLE HOSPICE TREATMENT Problem List - Problems (1) Colitis Code(s): K52.9 - NONINFECTIVE GASTROENTERITIS AND COLITIS, UNSPECIFIED (2) Colon cancer Code(s): C18.9 - MALIGNANT NEOPLASM OF COLON, UNSPECIFIED Qualifiers: Colon location: unspecified part of colon Qualified Code(s): C18.9 - Malignant neoplasm of colon, unspecified (3) Acute ischemic colitis Code(s): K55.039 - ACUTE ISCHEMIA OF LARGE INTESTINE, EXTENT UNSPECIFIED
[2016-11-05] MEDS: LORAZEPAM CARPU-JECT 2 MG/ML DISP.SYRIN IVPUSH PRN (15:01)
[2016-11-06] MEDS: MORPHINE 100 MG in SODIUM CHLORIDE 98 ML IVPB SCH ×3 (09:47→21:20)
[2016-11-06] MEDS: fentaNYL 100mcg/hr PATCH.TD72 TD SCH (09:54)
[2016-11-06] MEDS: FENTANYL PATCH WASTE TD PRN (09:58)
[2016-11-06] MEDS: SODIUM CHLORIDE 1,000 ML IV SCH ×2 (10:00→14:04)
--- NOTE | 2016-11-06 14:01 | PN ---
Progress Note (short form) - Note Progress Note: PATIENT COMFORTABLE ON IV MORPHINE AND PAIN MEDS NO DISTRESS ON OXYGEN SUPPORT Problem List - Problems (1) Colitis Code(s): K52.9 - NONINFECTIVE GASTROENTERITIS AND COLITIS, UNSPECIFIED (2) Colon cancer Code(s): C18.9 - MALIGNANT NEOPLASM OF COLON, UNSPECIFIED Qualifiers: Colon location: unspecified part of colon Qualified Code(s): C18.9 - Malignant neoplasm of colon, unspecified (3) Acute ischemic colitis Code(s): K55.039 - ACUTE ISCHEMIA OF LARGE INTESTINE, EXTENT UNSPECIFIED
[2016-11-06] MEDS: LORAZEPAM CARPU-JECT 2 MG/ML DISP.SYRIN IVPUSH PRN (20:46)
[2016-11-07] MEDS: MORPHINE 100 MG in SODIUM CHLORIDE 98 ML IVPB SCH ×2 (08:01→18:08)
[2016-11-07] MEDS ORDERED: ACETAMINOPHEN 650 MG SUPP.RECT PR PRN (11:59)
[2016-11-07] MEDS ORDERED: SCOPOLAMINE HYDROBROMIDE 1 PATCH PATCH.TD72 TD SCH (12:00)
--- NOTE | 2016-11-07 13:03 | PN ---
Progress Note (short form) - Note Progress Note: PATIENT SEEN AND EXAMINED SCOPALAMINE PATCH ORDERED 02 SUPPORT CONTINUED FAMILY NOT HERE AT THIS TIME NURSE AND I DISCUSSED THE CASE, WILL FOLLOW UP. Problem List - Problems (1) Colitis Code(s): K52.9 - NONINFECTIVE GASTROENTERITIS AND COLITIS, UNSPECIFIED (2) Colon cancer Code(s): C18.9 - MALIGNANT NEOPLASM OF COLON, UNSPECIFIED Qualifiers: Colon location: unspecified part of colon Qualified Code(s): C18.9 - Malignant neoplasm of colon, unspecified (3) Acute ischemic colitis Code(s): K55.039 - ACUTE ISCHEMIA OF LARGE INTESTINE, EXTENT UNSPECIFIED
[2016-11-07] MEDS: SODIUM CHLORIDE 1,000 ML IV SCH ×2 (17:34→17:41)
[2016-11-08] MEDS: MORPHINE 100 MG in SODIUM CHLORIDE 98 ML IVPB SCH (01:40)
[2016-11-08 02:07] VITALS: BP 81/39; PULSE 88; TEMP 99.3
--- NOTE | 2016-11-08 06:21 | HOSP ---
Subjective - Review of Symptoms Events since last encounter: patient Subjective: patient lying still, cool, cyanotic, stiff, unresponsive to pain lacking breath sounds, heart sounds or corneal reflex Physical Examination Vital Signs: Vital Signs Temperature 99.3 F 11/07/16 22:00 Pulse Rate 88 11/07/16 22:00 Respiratory Rate 20 11/07/16 22:00 Blood Pressure 81/39 11/07/16 22:00 O2 Sat by Pulse Oximetry (%) 93 L 11/07/16 21:00 Constitutional: Yes: Cachectic, Thin Eyes: Yes: Other (fined pupils, no corneal reflex present) Neck: Yes: Rigid Cardiovascular: Yes: Other (absent heart sounds) Respiratory: Yes: Other (absent breath sounds) Gastrointestinal: Yes: Other (absent bowel sounds) Peripheral Pulses: Left Radial: 0, Right Radial: 0 Labs: CBC, BMP 10/28/16 06:30 10/28/16 06:30 Hospitalist Encounter Assessment: patient -was on hospice care -time of 12:45 am -PCP notified -family at bedside Visit type - Emergency Visit Emergency Visit: Yes ED Registration Date: 10/26/16 Care time: The patient presented to the Emergency Department on the above date and was hospitalized for further evaluation of their emergent condition. - New Patient This patient is new to me today: Yes Date on this admission: 11/08/16 - Critical Care Critical Care patient: No
== END 2016-11-08 02:30 | disposition expired | DRG 871 ==
LOC: JER 06:44 → JERBED 10:43 → J8W 16:25
PROVIDERS: ADMIT Family Medicine; ATTEND Family Medicine
DX: A41.9 Sepsis, unspecified organism (principal); K55.039 Acute (reversible) ischemia of large intestine, extent unspecified; G92 Toxic encephalopathy; C18.9 Malignant neoplasm of colon, unspecified; C78.7 Secondary malignant neoplasm of liver and intrahepatic bile duct; C78.00 Secondary malignant neoplasm of unspecified lung; C79.51 Secondary malignant neoplasm of bone; N17.9 Acute kidney failure, unspecified; D68.69 Other thrombophilia; R18.8 Other ascites; R64 Cachexia; J44.9 Chronic obstructive pulmonary disease, unspecified; K21.9 Gastro-esophageal reflux disease without esophagitis; I10 Essential (primary) hypertension; Z68.20 Body mass index [BMI] 20.0-20.9, adult
CPT/HCPCS: 36415; 70450-TC; 71010-TC; 74176-TC; 76775-TC; 76856-TC; 80053; 81003; 81015; 82436; 82550; 82553; 82570; 82803; 83605; 83880; 84133; 84300; 84484; 85025; 85027; 85610; 85730; 86850; 86870; 86900; 86901; 86902; 87040; 87045; 87046; 87086; 87186; 87205; 87324; 87449; 93005; 93010; 93306-TC; 94640; 99282-25; J1644